=== PATIENT | male | born 1950 | race African-American/Black ===

== ENCOUNTER 2017-07-12 10:27 | Inpatient (IN) | payer MEDICARE, OTHER ==
[~2017-07-12] VITALS: Ht 182.9 cm; Wt 86.2 kg
[2017-07-12] VITALS (13 sets, daily range): BP systolic 82–120; BP diastolic 52–98
[2017-07-12] MEDS ORDERED: LORazepam Inj 2mg/ml 1ml IV ONE (10:45)
--- NOTE | 2017-07-12 10:57 | Emergency Room Report ---
History of Present Illness General Chief Complaint: Seizure Source: Medical Record, EMS Present Illness HPI Patient is brought in by paramedics for reported seizure activity Patient is a nursing facility and was found to have tonic-clonic seizure Patient himself is nonverbal at this time Review of medical records reveals a recent hospitalization in June 22 With similar seizure activity Patient was reported to have heavy alcohol abuse in the past and has had withdrawal seizures At this time not able to obtain further information regarding the patient's last drink or other reasons for seizure No reports of vomiting or diarrhea Allergies: Coded Allergies: HONEY (Verified Allergy, Unknown, 07/12/17) PENICILLINS (Verified Allergy, Unknown, 07/12/17) Patient History Limited by: medical condition Past Medical History: see triage record Pertinent Family History: unable to obtain Reviewed Nursing Documentation: PMH: Agreed, PSxH: Agreed Nursing Documentation-PMH Past Medical History: No History, Except For Hx Hypertension: Yes Hx Seizures: Yes Review of Systems All Other Systems: limited - Other than the ones mentioned in the history of present illness all others are reviewed however they do stay limited due to the patient's mental status Physical Exam Vital Signs Date Time Temp Pulse Resp B/P (MAP) Pulse Ox O2 Delivery O2 Flow Rate FiO2 07/12/17 10:19 112 10 85/58 Ambu-Bag Sp02 EP Interpretation: reviewed, normal General Appearance: mild distress - Patient appears possibly postictal however was also given benzodiazepine medication by paramedics, Head: normocephalic, atraumatic Eyes: bilateral eye PERRL, bilateral eye EOMI ENT: normal pharynx Neck: supple Respiratory: lungs clear, normal breath sounds Cardiovascular #1: regular rate, rhythm, no edema Gastrointestinal: non tender, soft Musculoskeletal: other - On initial arrival patient is not verbal appears to be medicated and possibly postictal, Neurologic: responsive - to physical stimuli Skin: normal color, no rash Lymphatic: no adenopathy Medical Decision Making Diagnostic Impression: Primary Impression: Epileptic seizure, generalized Additional Impression: UTI (urinary tract infection) ER Course Patient is a fairly complex patient with multiple differential to consideration including but not limited to cardiac cardiopulmonary and vascular emergencies Patient's urine sample reveals infectious pathology CT head did not show any acute disease patient has remained somewhat hypotensive There is consideration for medications that were provided by paramedics Causing hypotension however sepsis needs to be considered Patient remains afebrile Chest x-ray does not show any acute disease patient had improved with blood pressure up to the mid 90s however again is showing 85 systolic Patient provided us patient antibiotics further hydration and at this time requires admission to monitored bed Labs Test 07/12/17 10:30 07/12/17 11:30 White Blood Count 9.4 K/UL (4.8-10.8) Red Blood Count 3.94 M/UL (4.70-6.10) Hemoglobin 14.0 G/DL (14.2-18.0) Hematocrit 44.2 % (42.0-52.0) Mean Corpuscular Volume 112 FL (80-99) Mean Corpuscular Hemoglobin 35.6 PG (27.0-31.0) Mean Corpuscular Hemoglobin Concent 31.6 G/DL (32.0-36.0) Red Cell Distribution Width 11.8 % (11.6-14.8) Platelet Count 370 K/UL (150-450) Mean Platelet Volume 7.3 FL (6.5-10.1) Neutrophils (%) (Auto) % (45.0-75.0) Lymphocytes (%) (Auto) % (20.0-45.0) Monocytes (%) (Auto) % (1.0-10.0) Eosinophils (%) (Auto) % (0.0-3.0) Basophils (%) (Auto) % (0.0-2.0) Differential Total Cells Counted 100 Neutrophils % (Manual) 55 % (45-75) Lymphocytes % (Manual) 31 % (20-45) Monocytes % (Manual) 13 % (1-10) Eosinophils % (Manual) 1 % (0-3) Basophils % (Manual) 0 % (0-2) Band Neutrophils 0 % (0-8) Platelet Estimate Adequate Platelet Morphology Normal Macrocytosis 1+ Sodium Level 142 MMOL/L (136-145) Potassium Level 4.4 MMOL/L (3.5-5.1) Chloride Level 107 MMOL/L (98-107) Carbon Dioxide Level 26 MMOL/L (21-32) Anion Gap 9 (5-15) Blood Urea Nitrogen 20 mg/dL (7-18) Creatinine 1.2 MG/DL (0.55-1.30) Estimat Glomerular Filtration Rate > 60 mL/min (>60) Glucose Level 135 MG/DL (74-106) Calcium Level 9.3 MG/DL (8.5-10.1) Total Bilirubin 0.8 MG/DL (0.2-1.0) Aspartate Amino Transf (AST/SGOT) 39 U/L (15-37) Alanine Aminotransferase (ALT/SGPT) 29 U/L (12-78) Alkaline Phosphatase 64 U/L (46-116) Total Creatine Kinase 81 U/L (26-308) Creatine Kinase MB 0.8 NG/ML (0.0-3.6) Creatine Kinase MB Relative Index 0.9 Troponin I 0.017 ng/mL (0.000-0.056) Total Protein 8.2 G/DL (6.4-8.2) Albumin 3.2 G/DL (3.4-5.0) Globulin 5.0 g/dL Albumin/Globulin Ratio 0.6 (1.0-2.7) Lipase 757 U/L (73-393) Urine Color Yellow Urine Appearance Clear Urine pH 5 (4.5-8.0) Urine Specific [place] 1.025 (1.005-1.035) Urine Protein 2+ (NEGATIVE) Urine Glucose (UA) Negative (NEGATIVE) Urine Ketones Negative (NEGATIVE) Urine Occult Blood 1+ (NEGATIVE) Urine Nitrite Positive (NEGATIVE) Urine Bilirubin Negative (NEGATIVE) Urine Urobilinogen 1 MG/DL (0.0-1.0) Urine Leukocyte Esterase 2+ (NEGATIVE) Urine RBC 2-4 /HPF (0 - 0) Urine WBC 5-10 /HPF (0 - 0) Urine Squamous Epithelial Cells Few /LPF (NONE/OCC) Urine Bacteria Moderate /HPF (NONE) Urine Mucus Moderate /LPF (NONE/OCC) Urine Opiates Screen Negative (NEGATIVE) Urine Barbiturates Screen Negative (NEGATIVE) Phencyclidine (PCP) Screen Negative (NEGATIVE) Urine Amphetamines Screen Negative (NEGATIVE) Urine Benzodiazepines Screen Positive (NEGATIVE) Urine Cocaine Screen Negative (NEGATIVE) Urine Marijuana (THC) Screen Negative (NEGATIVE) Rhythm Strip Diag. Results EP Interpretation: yes Rate: 88 Rhythm: NSR, no PVC's, no ectopy Chest X-Ray Diagnostic Results Chest X-Ray Diagnostic Results : Chest X-Ray Ordered: Yes # of Views/Limited/Complete: 1 View Indication: Chest Pain EP Interpretation: Yes Interpretation: no consolidation, no effusion, no pneumothorax, no acute cardiopulmonary disease Impression: No acute disease Electronically Signed by: John Platt, DO CT/MRI/US Diagnostic Results CT/MRI/US Diagnostic Results : Impression CT head no acute disease CT abdomen pelvis no acute disease Last Vital Signs Date Time Temp Pulse Resp B/P (MAP) Pulse Ox O2 Delivery O2 Flow Rate FiO2 07/12/17 10:19 112 10 85/58 Ambu-Bag Status: improved Disposition: ADMITTED INPATIENT Condition: Serious Referrals: John Carballo MD (PCP) JOHN PLATT D.O. Jul 12, 2017 10:57
[2017-07-12 11:01] LABS: MEAN CORPUSCULAR HEMOGLOBIN 35.6 PG (27.0-31.0); MEAN CORPUSCULAR HGB CONC 31.6 G/DL (32.0-36.0); MEAN CORPUSCULAR VOLUME 112 FL (80-99); MEAN PLATELET VOLUME 7.3 FL (6.5-10.1); PLATELET COUNT 370 K/UL (150-450); RED BLOOD COUNT 3.94 M/UL (4.70-6.10); RED CELL DISTRIBUTION WIDTH 11.8 % (11.6-14.8); WHITE BLOOD COUNT 9.4 K/UL (4.8-10.8)
--- NOTE | 2017-07-12 11:06 | Diagnostic Imaging Report ---
Indication: Seizure Comparison: None Technique: Contiguous helical CT images of the brain was performed with [address] dose: Total DLP: 1393 mGycm; CTDI volume: 70.4 mGy Findings: There is no acute intracranial hemorrhage or infarct. No mass, mass effect or midline shift identified. Ventricles and sulci are prominent secondary to global cortical atrophy. There are no extra-axial fluid collections seen. Periventricular chronic ischemic changes are noted. Bony calvarium is intact. Mastoid air cells and visualized paranasal sinuses are clear. Impression: 1. No acute intracranial abnormalities. 2. Global cortical atrophy with periventricular chronic ischemic changes. The CT scanner at [facility] is accredited by the [employer] and the scans are performed using protocols designed to limit radiation exposure to as low as reasonably achievable to attain images of sufficient resolution adequate for diagnostic evaluation.
--- NOTE | 2017-07-12 11:14 | Diagnostic Imaging Report ---
Indication: Chest pain Comparison: None Findings: Single view of the chest is obtained. Exam is suboptimal secondary to decreased inspiration. Cardiac size is at the upper limits of normal. Mild pulmonary vascular congestion is noted. Lungs otherwise clear. Bones are unremarkable. Impression: Mild bilateral pulmonary vascular congestion.
[2017-07-12 11:19] LABS: BAND NEUTROPHILS % (MANUAL) 0 % (0-8); BASOPHILS % (MANUAL) 0 % (0-2); EOSINOPHILS % (MANUAL) 1 % (0-3); LYMPHOCYTES % (MANUAL) 31 % (20-45); NEUTROPHILS % (MANUAL) 55 % (45-75); PLATELET ESTIMATE ADEQUATE; PLATELET MORPHOLOGY NORMAL; TOTAL CELLS COUNTED 100
[2017-07-12 11:20] LABS: MACROCYTES 1+
[2017-07-12 11:46] LABS: ALANINE AMINOTRANSFERASE 29 U/L (12-78); ALBUMIN/GLOBULIN RATIO 0.6 (1.0-2.7); ANION GAP 9 (5-15); ASPARTATE AMINO TRANSFERASE 39 U/L (15-37); CALCIUM 9.3 MG/DL (8.5-10.1); CARBON DIOXIDE 26 MMOL/L (21-32); CHLORIDE 107 MMOL/L (98-107); CKMB 0.8 NG/ML (0.0-3.6); CREATININE 1.2 MG/DL (0.55-1.30); GLOMERULAR FILTRATION RATE > 60 mL/min (>60); LIPASE 757 U/L (73-393); POTASSIUM 4.4 MMOL/L (3.5-5.1); SODIUM 142 MMOL/L (136-145); TOTAL PROTEIN 8.2 G/DL (6.4-8.2)
[2017-07-12 12:02] LABS: APPEARANCE,URINE CLEAR; KETONES,URINE NEGATIVE (NEGATIVE); LEUKOCYTE ESTERASE ,URINE 2+ (NEGATIVE); NITRITE,URINE POSITIVE (NEGATIVE); PH,URINE 5 (4.5-8.0); PROTEIN,URINE 2+ (NEGATIVE); UROBILINOGEN,URINE 1 MG/DL (0.0-1.0)
[2017-07-12 12:27] LABS: BACTERIA,URINE MODERATE /HPF; MUCUS,URINE MODERATE /LPF (NONE/OCC); SQUAMOUS EPITHELIAL CELL,UR FEW /LPF (NONE/OCC)
[2017-07-12] MEDS ORDERED: OMEPRAZOLE20 M3 ORAL (13:27)
[2017-07-12] MEDS ORDERED: HYDRALAZINE HC100 MG ORAL (13:27)
[2017-07-12] MEDS ORDERED: LOPRESSOR PO (13:27)
[2017-07-12] MEDS ORDERED: ADALAT20 MG ORAL (13:28)
[2017-07-12] MEDS ORDERED: COZAAR50 MG ORAL (13:28)
[2017-07-12] MEDS ORDERED: TEGRETOL200 MG PO (13:28)
[2017-07-12] MEDS ORDERED: KEPPRA500 M4 ORAL (13:29)
[2017-07-12] MEDS ORDERED: FOLIC ACID1 MG ORAL (13:29)
--- NOTE | 2017-07-12 16:48 | Infectious Diseases Prog Note ---
Assessment/Plan Problems: (1) Pneumonia Assessment & Plan: will start vancomycin, aztreonam, and flagyl empirically, send influenza screening (2) UTI (urinary tract infection) Assessment & Plan: will send urien culture and start cefepime (3) Sepsis Assessment & Plan: with hypotension, will send blood culture and start vancomycin with cefepime empiricaly (4) Epileptic seizure, generalized Assessment & Plan: unclear etiology, on wide spectrum antibiotics to cover possible infection, recommend neurology eval, continue neuro check Subjective Allergies: Coded Allergies: HONEY (Verified Allergy, Unknown, 07/12/17) PENICILLINS (Verified Allergy, Unknown, 07/12/17) Objective Vital Signs Last 24 Hour Vital Signs Date Time Temp Pulse Resp B/P (MAP) Pulse Ox O2 Delivery O2 Flow Rate FiO2 07/12/17 15:46 96.9 95 20 82/59 96 Nasal Cannula 4.0 07/12/17 13:30 99 10 95/54 91 Nasal Cannula 4.0 07/12/17 12:10 99.8 84 8 94/52 96 Nasal Cannula 4.0 07/12/17 10:28 88 10 Nasal Cannula 4.0 96 07/12/17 10:19 112 10 85/58 Ambu-Bag Height (Feet): 6 Weight (Pounds): 190 Laboratory Tests Test 07/12/17 10:30 07/12/17 11:30 White Blood Count 9.4 K/UL (4.8-10.8) Red Blood Count 3.94 M/UL (4.70-6.10) L Hemoglobin 14.0 G/DL (14.2-18.0) L Hematocrit 44.2 % (42.0-52.0) Mean Corpuscular Volume 112 FL (80-99) H Mean Corpuscular Hemoglobin 35.6 PG (27.0-31.0) H Mean Corpuscular Hemoglobin Concent 31.6 G/DL (32.0-36.0) L Red Cell Distribution Width 11.8 % (11.6-14.8) Platelet Count 370 K/UL (150-450) Mean Platelet Volume 7.3 FL (6.5-10.1) Neutrophils (%) (Auto) % (45.0-75.0) Lymphocytes (%) (Auto) % (20.0-45.0) Monocytes (%) (Auto) % (1.0-10.0) Eosinophils (%) (Auto) % (0.0-3.0) Basophils (%) (Auto) % (0.0-2.0) Differential Total Cells Counted 100 Neutrophils % (Manual) 55 % (45-75) Lymphocytes % (Manual) 31 % (20-45) Monocytes % (Manual) 13 % (1-10) H Eosinophils % (Manual) 1 % (0-3) Basophils % (Manual) 0 % (0-2) Band Neutrophils 0 % (0-8) Platelet Estimate Adequate Platelet Morphology Normal Macrocytosis 1+ Sodium Level 142 MMOL/L (136-145) Potassium Level 4.4 MMOL/L (3.5-5.1) Chloride Level 107 MMOL/L (98-107) Carbon Dioxide Level 26 MMOL/L (21-32) Anion Gap 9 (5-15) Blood Urea Nitrogen 20 mg/dL (7-18) H Creatinine 1.2 MG/DL (0.55-1.30) Estimat Glomerular Filtration Rate > 60 mL/min (>60) Glucose Level 135 MG/DL (74-106) H Calcium Level 9.3 MG/DL (8.5-10.1) Total Bilirubin 0.8 MG/DL (0.2-1.0) Aspartate Amino Transf (AST/SGOT) 39 U/L (15-37) H Alanine Aminotransferase (ALT/SGPT) 29 U/L (12-78) Alkaline Phosphatase 64 U/L (46-116) Total Creatine Kinase 81 U/L (26-308) Creatine Kinase MB 0.8 NG/ML (0.0-3.6) Creatine Kinase MB Relative Index 0.9 Troponin I 0.017 ng/mL (0.000-0.056) Total Protein 8.2 G/DL (6.4-8.2) Albumin 3.2 G/DL (3.4-5.0) L Globulin 5.0 g/dL Albumin/Globulin Ratio 0.6 (1.0-2.7) L Lipase 757 U/L (73-393) H Urine Color Yellow Urine Appearance Clear Urine pH 5 (4.5-8.0) Urine Specific [place] 1.025 (1.005-1.035) Urine Protein 2+ (NEGATIVE) H Urine Glucose (UA) Negative (NEGATIVE) Urine Ketones Negative (NEGATIVE) Urine Occult Blood 1+ (NEGATIVE) H Urine Nitrite Positive (NEGATIVE) H Urine Bilirubin Negative (NEGATIVE) Urine Urobilinogen 1 MG/DL (0.0-1.0) H Urine Leukocyte Esterase 2+ (NEGATIVE) H Urine RBC 2-4 /HPF (0 - 0) H Urine WBC 5-10 /HPF (0 - 0) H Urine Squamous Epithelial Cells Few /LPF (NONE/OCC) Urine Bacteria Moderate /HPF (NONE) H Urine Mucus Moderate /LPF (NONE/OCC) H Urine Opiates Screen Negative (NEGATIVE) Urine Barbiturates Screen Negative (NEGATIVE) Phencyclidine (PCP) Screen Negative (NEGATIVE) Urine Amphetamines Screen Negative (NEGATIVE) Urine Benzodiazepines Screen Positive (NEGATIVE) H Urine Cocaine Screen Negative (NEGATIVE) Urine Marijuana (THC) Screen Negative (NEGATIVE) Ambrose Krishna M.D. Jul 12, 2017 16:48
[2017-07-12] MEDS ORDERED: Cefepime HCl 2 GM in D5W 110 ML IVPB SCH (18:00)
--- NOTE | 2017-07-12 18:45 | Consultation ---
DATE OF CONSULTATION: INFECTIOUS DISEASE CONSULTATION CONSULTING PHYSICIAN: Ambrose Krishna M.D. REQUESTING PHYSICIAN: John Carballo M.D. REASON FOR CONSULTATION: Fever, hypotension, urinary tract infection,and pneumonia. Recommendation for antibiotics treatment in a patient, who has penicillin allergy. HISTORY OF PRESENT ILLNESS: The patient is a 67-year-old male with past medical history of seizure disorder, was brought in by paramedics to [facility] emergency room after he had breakthrough seizure activity. It was tonic clonic seizure, was noticed by the nursing facility where he lives at. The patient was found to have urinary tract infection and fever. His x-ray also was suspicious of infiltration due to pneumonia and he was hypotensive. So, I was consulted by the primary provider for antibiotics treatment for possible sepsis with shock and urinary tract infection and possible pneumonia. As of note, the patient is a poor historian and cannot provide any history due to seizure activity. History was mainly obtained from the medical record. PAST MEDICAL HISTORY: Significant for seizure disorder and hypertension. PAST SURGICAL HISTORY: Negative. MEDICATIONS: He received Levaquin in the emergency room. For the rest of his medications, please refer to MAR. ALLERGIES: He is allergic to penicillin, unclear reaction and honey. SOCIAL HISTORY: He is a prison resident. He used to be alcoholic in the past, but quit recently. No drugs or tobacco. FAMILY HISTORY: Unable to obtain. REVIEW OF SYSTEMS: Unable to obtain. The patient cannot provide any history. PHYSICAL EXAMINATION: VITAL SIGNS: Temperature 99.8 degrees, pulse 84, respirations 8, blood pressure 94/52, and pulse oximetry 96% on four liters nasal cannula. GENERAL: A middle-aged male, lying in bed, obtunded, nonverbal, and not in acute distress. HEENT: Normocephalic and atraumatic. Pupils are reactive to light. Unable to assess oral mucosa. NECK: Supple. No lymphadenopathy. CARDIOVASCULAR: He is tachycardic. S1 and S2 normal. No gallop or murmur. LUNGS: He had diminished breathing sounds at the bases with crackles. No wheezing. ABDOMEN: Soft, nontender, and nondistended. Positive bowel sounds. No hepatosplenomegaly or ascites. EXTREMITY: No edema or cyanosis. LABORATORY DATA: Labs showed white count of 9.4, hemoglobin of 14.4, and platelet count of 370,000. BUN of 20 and creatinine of 1.2. Lipase of 757. Urinalysis showed +2 leukocyte esterase, WBC 5 to 10, and moderate amount of bacteria. IMAGING: Head CT scan showed no acute pathology, infarction, or bleeding. Chest x-ray showed mild bilateral pulmonary vascular congestion. ASSESSMENT AND RECOMMENDATIONS: 1. Possible pneumonia. We will start the patient on vancomycin , aztreonam and flagyl empiric coverage and send influenza screening test. 2. Urinary tract infection. We will send urine culture and start cefepime. 3. Sepsis with hypotension due to the above. We will send blood culture and start vancomycin with cefepime empiric coverage. 4. Epileptic seizure, generalized, unclear etiology, on wide-spectrum antibiotics to cover for possible infection. Recommend Neurology evaluation for further management. Continue neuro check. Thank you for the consult. Ambrose Krishna M.D. DR: XAVI JOB#: [id number] CC: ROD
[2017-07-12] MEDS ORDERED: NS 250 ML IV ONE (19:00)
[2017-07-12] MEDS ORDERED: Vancomycin 1.5 GM/D5W 250ML IVPB ONE (19:30)
[2017-07-12] MEDS ORDERED: Heparin 5000 units/ml inj SUBQ SCH (21:00)
[2017-07-12] MEDS ORDERED: Aztreonam Inj 1 GM in D5W 55 ML IVPB SCH (23:00)
[2017-07-12] MEDS: Aztreonam Inj 1 GM in D5W 55 ML IVPB SCH (23:37)
[2017-07-13] VITALS (43 sets, daily range): BP systolic 70–174; BP diastolic 40–113
--- NOTE | 2017-07-13 | Consultation ---
DATE OF CONSULTATION: 07/12/2017 GASTROENTEROLOGY CONSULTATION CONSULTING PHYSICIAN: Glenn Haq M.D. ATTENDING PHYSICIAN: John Carballo M.D. REFERRING PHYSICIAN: John Carballo M.D. CHIEF COMPLAINT: Pancreatitis. HISTORY OF PRESENT ILLNESS: Most of history is per at the bedside. A 67-year-old male with past medical history of alcoholism, history of IV drug abuse in the past, history of hepatitis C untreated. Recently, he was admitted on 06/22/2017 to another facility after having seizure, the does not know why, possibly alcohol withdrawal but not sure. He was there for long time and was discharged recently. On , he was transferred and discharged from the hospital and now came back again with another seizure and also evidence of pancreatitis. According to the , daughter, and the hospitalist, he was told that the patient has gallstones and also evidence of pancreatitis, so they were not sure if the gallstone was causing pancreatitis or not. PAST MEDICAL HISTORY: 1. Hepatitis C. 2. History of alcoholism. 3. History of IV drug abuse in the past. 4. Gallstones. 5. Pancreatitis. 6. Seizure recently. PAST SURGICAL HISTORY: None. MEDICATIONS: Please see medication reconciliation list. ALLERGIES: Honey and penicillin. SOCIAL HISTORY: He smokes, drinks, and he used to do drugs, currently on methadone. FAMILY HISTORY: Noncontributory. REVIEW OF SYSTEMS: Unable to obtain. PHYSICAL EXAMINATION: VITAL SIGNS: Temperature 96.9, pulse , respiratory rate 20, and blood pressure 82/59. HEENT: Normocephalic and atraumatic. Mild pale conjunctivae. NECK: Supple. No evidence of lymphadenopathy. CARDIOVASCULAR: Regular rhythm. Plus S1 and S2. LUNGS: Clear to auscultation bilaterally. ABDOMEN: Positive bowel sounds. Soft and nontender. No rebound. No guarding. No peritoneal sign. EXTREMITIES: No cyanosis, no clubbing, and no edema. LABORATORY AND DIAGNOSTIC DATA: White count 9.4, hemoglobin 14, hematocrit 44, and platelet count 370,000. Chem-7, sodium 142, potassium 4.4, BUN is 20 and creatinine is 1.2. Liver function is grossly normal. Lipase is 757. ASSESSMENT AND PLAN: The patient is a 67-year-old male with history of hepatitis C, history of intravenous drug abuse, probably intravenous drug abuse recently. He is having history of pancreatitis and gallstones and now with elevated lipase. PLAN: N.p.o. IV fluids. Swallow evaluation. CT of the abdomen and pelvis for evaluation of pancreatitis. Repeat amylase and lipase tomorrow. Lipid panel for tomorrow. B12 and folate given macrocytosis and start the patient on subcutaneous heparin for DVT prophylaxis. I want to thank, Dr. John Carballo, for this kind referral. Glenn Haq M.D. DR: RAY JOB#: [id number] CC: John Carballo M.D.; Fax#: [phone]
[2017-07-13] MEDS ORDERED: Vancomycin 1.5 GM/D5W 250ML IVPB ONE (00:15)
[2017-07-13] MEDS: Aztreonam Inj 1 GM in D5W 55 ML IVPB SCH ×3 (05:27→21:41)
[2017-07-13] MEDS: Heparin 5000 units/ml inj SUBQ SCH ×2 (08:37→20:41)
--- NOTE | 2017-07-13 08:42 | Diagnostic Imaging Report ---
Clinical Indication: Abdominal pain Technique: No oral contrast utilized, per emergency room physician request IV administration nonionic contrast. Venous phase spiral acquisition obtained through the abdomen and pelvis. Multiplanar reconstructions were generated. Total dose length product 1079 mGycm. CTDIvol(s) 19 mGy. Dose reduction achieved using automated exposure control Comparison: None Findings: Exam is limited by respiratory motion artifact. The appendix is normal. There is a mild amount of retained fecal material. There are a few scattered colonic diverticula. No evidence of diverticulitis. No small bowel distention. No free or loculated intraperitoneal air or fluid. Distal esophagus, stomach, duodenum are unremarkable. The gallbladder equivocally demonstrates gallstones. The common bile duct is mildly ectatic, measuring up to 9 mm in diameter. No definite obstructing lesion is demonstrated. The pancreas, spleen, adrenals are unremarkable. There are bilateral renal cysts. There are also subcentimeter low-attenuation renal lesions which are too small to characterize. No mesenteric or retroperitoneal mass or adenopathy. No pelvic mass or adenopathy. There are prostatic calcifications. There is stranding of the anterior abdominal wall fat. There is also edema of the dependent subcutaneous fat of the bilateral buttock and lumbar regions. The included lung bases demonstrate interstitial thickening bilaterally. The bones demonstrate mild spondylosis changes. There is a mild anterior wedge compression fracture deformity of the L4 vertebral body. There are tiny fat-containing inguinal hernias. There is questionably a minimal hiatal hernia. Impression: Somewhat limited exam due to respiratory motion artifact No definite acute abdominal or pelvic process Bilateral basilar pulmonary probable interstitial disease, acuity indeterminate Superior L4 impression fracture, age indeterminate. Consider MRI if clinically relevant Equivocal cholelithiasis Diverticulosis. No evidence of diverticulitis Stranding of the anterior abdominal wall and bilateral a duct and lumbar dependent subcutaneous fat, nonspecific, probably due to edema Bilateral renal cysts. Subcentimeter low-attenuation renal lesions are too small to characterize. Most likely benign simple cyst. No further followup needed Other findings as noted, including probable small hiatal hernia, bilateral fat-containing inguinal hernias, degenerative spondylosis, prostatic calcifications This agrees with the preliminary interpretation provided overnight by Dr. Ramírez The CT scanner at [facility] is accredited by the [employer] and the scans are performed using protocols designed to limit radiation exposure to as low as reasonably achievable to attain images of sufficient resolution adequate for diagnostic evaluation.
[2017-07-13 09:52] LABS: MEAN CORPUSCULAR HEMOGLOBIN 36.3 PG (27.0-31.0); MEAN CORPUSCULAR HGB CONC 32.3 G/DL (32.0-36.0); MEAN CORPUSCULAR VOLUME 112 FL (80-99); MEAN PLATELET VOLUME 7.1 FL (6.5-10.1); PLATELET COUNT 256 K/UL (150-450); RED BLOOD COUNT 3.31 M/UL (4.70-6.10); RED CELL DISTRIBUTION WIDTH 11.7 % (11.6-14.8); WHITE BLOOD COUNT 9.8 K/UL (4.8-10.8)
[2017-07-13 09:56] LABS: PROTHROMBIN TIME 10.3 SEC (9.30-11.50)
[2017-07-13] MEDS ORDERED: Vancomycin 1gm/D5W 275ml IVPB SCH ×2 (10:00)
[2017-07-13 10:12] LABS: ALANINE AMINOTRANSFERASE 26 U/L (12-78); ALBUMIN/GLOBULIN RATIO 0.8 (1.0-2.7); AMYLASE 122 U/L (25-115); ANION GAP 7 (5-15); ASPARTATE AMINO TRANSFERASE 25 U/L (15-37); CALCIUM 9.2 MG/DL (8.5-10.1); CARBON DIOXIDE 29 MMOL/L (21-32); CHLORIDE 107 MMOL/L (98-107); CHOLESTEROL 82 MG/DL (< 200); CHOLESTEROL/HDL RATIO 2.2 (3.3-4.4); CREATININE 2.2 MG/DL (0.55-1.30); GLOMERULAR FILTRATION RATE 36.5 mL/min (>60); POTASSIUM 4.1 MMOL/L (3.5-5.1); SODIUM 143 MMOL/L (136-145); TOTAL PROTEIN 7.4 G/DL (6.4-8.2)
[2017-07-13 10:21] LABS: BAND NEUTROPHILS % (MANUAL) 0 % (0-8); BASOPHILS % (MANUAL) 1 % (0-2); EOSINOPHILS % (MANUAL) 1 % (0-3); LYMPHOCYTES % (MANUAL) 18 % (20-45); MACROCYTES 1+; NEUTROPHILS % (MANUAL) 71 % (45-75); PLATELET ESTIMATE ADEQUATE; PLATELET MORPHOLOGY NORMAL; TOTAL CELLS COUNTED 100
[2017-07-13 10:23] LABS: MAGNESIUM 1.8 MG/DL (1.8-2.4); PHOSPHORUS 5.4 MG/DL (2.5-4.9); URIC ACID 5.1 MG/DL (2.6-7.2)
[2017-07-13 10:40] LABS: FOLIC ACID 16.4 NG/ML (3.1-17.5)
--- NOTE | 2017-07-13 11:19 | Consultation ---
Consult Note Consult Note asked to evaluate for acute renal failure Chief Complaint: Seizure Patient is brought in by paramedics for reported seizure activity Patient is a nursing facility and was found to have tonic-clonic seizure Review of medical records reveals a recent hospitalization in June 22 With similar seizure activity Patient was reported to have heavy alcohol abuse in the past and has had withdrawal seizures At this time not able to obtain further information regarding the patient's last drink or other reasons for seizure No reports of vomiting or diarrhea Coded Allergies: HONEY (Verified Allergy, Unknown, 07/12/17) PENICILLINS (Verified Allergy, Unknown, 07/12/17) patient interviewed and examined in ICU data reviewed Assessment/Plan status; - Acute renal failure due to Hypotension . Cr 1.2 jumped to 2.2 - Pneumonia, UTI, Sepsis, Hypotension Sz disordere Plan: fluid challenged- pressors used now off pressors with good urine out put Will continue IV fluids- Monitor renal parameters antibiotics- avoid nephrotoxics Neuro and ID ANDREA Andrews Jul 13, 2017 11:19
--- NOTE | 2017-07-13 12:18 | Consultation ---
Consult Note Consult Note Date and time entered: 07/13/17 1216 DATE OF CONSULTATION: PULMONARY CONSULTATION CONSULTING PHYSICIAN: Clark Brian/Ralph Singh M.D. REQUESTING PHYSICIAN: John Carballo M.D. REASON FOR CONSULTATION: Seizures; respiratory insufficiency HISTORY OF PRESENT ILLNESS: The patient is a 67-year-old male with past medical history of seizure disorder, was brought in by paramedics to [facility] emergency room after he had breakthrough seizure activity. It was tonic clonic seizure, was noticed by the nursing facility where he lives at. The patient was found to have urinary tract infection and fever. His x-ray also was suspicious of infiltration due to pneumonia and he was hypotensive. The patient is a poor historian and cannot provide any history due to seizure activity. History was mainly obtained from the medical record. PAST MEDICAL HISTORY: Significant for seizure disorder and hypertension. PAST SURGICAL HISTORY: Negative. MEDICATIONS: He received Levaquin in the emergency room. For the rest of his medications, please refer to [facility]. ALLERGIES: He is allergic to penicillin, unclear reaction and honey. SOCIAL HISTORY: [facility] is a [facility] resident. He used to be alcoholic in the past, but quit recently. No drugs or tobacco. FAMILY HISTORY: Unable to obtain. REVIEW OF SYSTEMS: Unable to obtain. The patient cannot provide any history. PHYSICAL EXAMINATION: VITAL SIGNS: Temperature 99.8 degrees, pulse 84, respirations 8, blood pressure 94/52, and pulse oximetry 96% on four liters nasal cannula. GENERAL: A middle-aged male, lying in bed, obtunded, nonverbal, and not in acute distress. HEENT: Normocephalic and atraumatic. Pupils are reactive to light. Unable to assess oral mucosa. NECK: Supple. No lymphadenopathy. CARDIOVASCULAR: He is tachycardic. S1 and S2 normal. No gallop or murmur. LUNGS: He had diminished breathing sounds at the bases with crackles. No wheezing. ABDOMEN: Soft, nontender, and nondistended. Positive bowel sounds. No hepatosplenomegaly or ascites. EXTREMITY: No edema or cyanosis. LABORATORY DATA: Labs showed white count of 9.4, hemoglobin of 14.4, and platelet count of 370,000. BUN of 20 and creatinine of 1.2. Lipase of 757. Urinalysis showed +2 leukocyte esterase, WBC 5 to 10, and moderate amount of bacteria. IMAGING: Head CT scan showed no acute pathology, infarction, or bleeding. Chest x-ray showed mild bilateral pulmonary vascular congestion. ASSESSMENT AND RECOMMENDATIONS: 1. Possible pneumonia. Agree with vancomycin , aztreonam and flagyl empiric coverage 2. Urinary tract infection. await urine culture and start cefepime. 3. Sepsis with hypotension due to the above. Send blood culture and start vancomycin with cefepime empiric coverage. 4. Epileptic seizure, generalized, unclear etiology, on wide-spectrum antibiotics to cover for possible infection. Respiratory status is stable Thank you for the consult. Clark Brian MD Jul 13, 2017 12:18
[2017-07-13] MEDS ORDERED: LORazepam Inj 2mg/ml 1ml IV PRN (12:30)
--- NOTE | 2017-07-13 12:58 | Neurology Progress Note ---
Objective Physical Exam Last Vital Signs Date Time Temp Pulse Resp B/P (MAP) Pulse Ox O2 Delivery O2 Flow Rate FiO2 07/13/17 10:00 91 15 122/94 100 Nasal Cannula 2.0 07/13/17 04:00 97.4 07/12/17 22:50 28 Laboratory Tests Test 07/13/17 09:15 White Blood Count 9.8 K/UL (4.8-10.8) Red Blood Count 3.31 M/UL (4.70-6.10) L Hemoglobin 12.0 G/DL (14.2-18.0) L Hematocrit 37.1 % (42.0-52.0) L Mean Corpuscular Volume 112 FL (80-99) H Mean Corpuscular Hemoglobin 36.3 PG (27.0-31.0) H Mean Corpuscular Hemoglobin Concent 32.3 G/DL (32.0-36.0) Red Cell Distribution Width 11.7 % (11.6-14.8) Platelet Count 256 K/UL (150-450) Mean Platelet Volume 7.1 FL (6.5-10.1) Neutrophils (%) (Auto) % (45.0-75.0) Lymphocytes (%) (Auto) % (20.0-45.0) Monocytes (%) (Auto) % (1.0-10.0) Eosinophils (%) (Auto) % (0.0-3.0) Basophils (%) (Auto) % (0.0-2.0) Differential Total Cells Counted 100 Neutrophils % (Manual) 71 % (45-75) Lymphocytes % (Manual) 18 % (20-45) L Monocytes % (Manual) 9 % (1-10) Eosinophils % (Manual) 1 % (0-3) Basophils % (Manual) 1 % (0-2) Band Neutrophils 0 % (0-8) Platelet Estimate Adequate Platelet Morphology Normal Macrocytosis 1+ Prothrombin Time 10.3 SEC (9.30-11.50) Prothromb Time International Ratio 1.0 (0.9-1.1) Sodium Level 143 MMOL/L (136-145) Potassium Level 4.1 MMOL/L (3.5-5.1) Chloride Level 107 MMOL/L (98-107) Carbon Dioxide Level 29 MMOL/L (21-32) Anion Gap 7 (5-15) Blood Urea Nitrogen 23 mg/dL (7-18) H Creatinine 2.2 MG/DL (0.55-1.30) #H Estimat Glomerular Filtration Rate 36.5 mL/min (>60) Glucose Level 86 MG/DL (74-106) Uric Acid 5.1 MG/DL (2.6-7.2) Calcium Level 9.2 MG/DL (8.5-10.1) Phosphorus Level 5.4 MG/DL (2.5-4.9) H Magnesium Level 1.8 MG/DL (1.8-2.4) Total Bilirubin 0.9 MG/DL (0.2-1.0) Gamma Glutamyl Transpeptidase 273 U/L (5-85) H Aspartate Amino Transf (AST/SGOT) 25 U/L (15-37) Alanine Aminotransferase (ALT/SGPT) 26 U/L (12-78) Alkaline Phosphatase 50 U/L (46-116) Total Creatine Kinase 107 U/L (26-308) Troponin I 0.000 ng/mL (0.000-0.056) C-Reactive Protein, Quantitative 1.0 mg/dL (0.00-0.90) H Pro-B-Type Natriuretic Peptide 196 (0-125) H Total Protein 7.4 G/DL (6.4-8.2) Albumin 3.2 G/DL (3.4-5.0) L Globulin 4.2 g/dL Albumin/Globulin Ratio 0.8 (1.0-2.7) L Triglycerides Level 67 MG/DL (0-200) Cholesterol Level 82 MG/DL (< 200) LDL Cholesterol 39 mg/dL (<100) HDL Cholesterol 38 MG/DL (40-60) L Cholesterol/HDL Ratio 2.2 (3.3-4.4) L Amylase Level 122 U/L (25-115) H Lipase 180 U/L (73-393) Vitamin B12 Level 784 PG/ML (193-986) Folate 16.4 NG/ML (3.1-17.5) Impression/Recommendations Problems: (1) Epileptic seizure, generalized (2) UTI (urinary tract infection) Recommendations # neuroconsult done, ordrs placed. # [id number] EMILIA HAWTHORNE Jul 13, 2017 12:58
[2017-07-13] MEDS ORDERED: Vancomycin 1 GM in D5W 275 ML IVPB SCH (13:00)
[2017-07-13] MEDS: LORazepam Inj 2mg/ml 1ml IV PRN ×2 (13:38→22:56)
[2017-07-13] MEDS ORDERED: Haloperidol 5mg/ml Inj IM PRN (13:45)
--- NOTE | 2017-07-13 13:47 | GI Progress Note ---
Assessment/Plan Problems: (1) Sepsis ICD Codes: A41.9 - Sepsis, unspecified organism SNOMED: 11299326 (2) Epileptic seizure, generalized ICD Codes: G40.309 - Generalized idiopathic epilepsy and epileptic syndromes, not intractable, without status epilepticus SNOMED: 78497480 (3) Seizure disorder ICD Codes: G40.909 - Epilepsy, unspecified, not intractable, without status epilepticus SNOMED: 472688212 (4) Absence seizure ICD Codes: G40.A09 - Absence epileptic syndrome, not intractable, without status epilepticus SNOMED: 32816903 Status: stable Status Narrative Discussed with Dr. Haq. Assessment/Plan CT AP reviewed >> unremarkable History of hepatitis C, history of intravenous drug abuse elevated lipase >> now normal utox positive >> benzodiazepine ST eval noted >> will start patient on soft renal diet thiamine ppi fu labs The patient was seen and examined at bedside and all new and available data was reviewed in the patients chart. I agree with the above findings, impression and plan. (Patient seen earlier today. Signature stamp does not reflect patient encounter time.). - Brianna Haq MD Subjective Subjective limited Objective Last 24 Hour Vital Signs Date Time Temp Pulse Resp B/P (MAP) Pulse Ox O2 Delivery O2 Flow Rate FiO2 07/13/17 12:00 97 07/13/17 10:00 91 15 122/94 100 Nasal Cannula 2.0 07/13/17 08:00 96 07/13/17 07:00 90 13 109/72 100 Nasal Cannula 2.0 07/13/17 06:45 86 13 123/76 100 Nasal Cannula 2.0 07/13/17 06:30 88 15 115/62 96 Nasal Cannula 2.0 07/13/17 06:15 89 17 123/58 100 Nasal Cannula 2.0 07/13/17 06:00 93 14 103/69 98 Nasal Cannula 2.0 07/13/17 06:00 103/69 07/13/17 05:45 98 17 108/43 98 Nasal Cannula 2.0 07/13/17 05:30 113 24 119/78 90 Nasal Cannula 2.0 07/13/17 05:15 110 17 124/76 94 Nasal Cannula 2.0 07/13/17 05:00 111 18 105/89 98 Nasal Cannula 2.0 07/13/17 05:00 105/69 10/16/17 04:45 107 17 105/89 97 Nasal Cannula 2.0 07/13/17 04:30 106 19 105/89 98 Nasal Cannula 2.0 07/13/17 04:15 105 18 105/89 97 Nasal Cannula 2.0 07/13/17 04:00 97.4 94 18 115/40 94 Nasal Cannula 2.0 07/13/17 04:00 115/94 07/13/17 04:00 89 07/13/17 03:45 87 18 70/45 94 Nasal Cannula 2.0 07/13/17 03:30 89 11 113/83 91 Nasal Cannula 2.0 07/13/17 03:15 93 19 116/70 94 Nasal Cannula 2.0 07/13/17 03:00 93 19 99/66 96 Nasal Cannula 2.0 07/13/17 03:00 116/70 07/13/17 02:45 93 19 108/66 96 Nasal Cannula 2.0 07/13/17 02:30 93 19 120/85 96 Nasal Cannula 2.0 07/13/17 02:15 93 12 108/71 97 Nasal Cannula 2.0 07/13/17 02:00 93 15 105/60 97 Nasal Cannula 2.0 07/13/17 02:00 108/71 07/13/17 01:45 93 16 105/83 97 Nasal Cannula 2.0 07/13/17 01:30 91 14 102/68 97 Nasal Cannula 2.0 07/13/17 01:15 91 14 102/68 97 Nasal Cannula 2.0 07/13/17 01:00 130/71 07/13/17 01:00 92 16 130/71 97 Nasal Cannula 2.0 07/13/17 00:45 90 12 118/71 97 Nasal Cannula 2.0 07/13/17 00:30 88 9 107/72 97 Nasal Cannula 4.0 07/13/17 00:15 91 12 113/70 97 Nasal Cannula 4.0 07/13/17 00:00 91 07/13/17 00:00 98.7 89 14 113/70 97 Nasal Cannula 4.0 07/13/17 00:00 119/68 07/12/17 23:45 93 17 120/98 96 Nasal Cannula 4.0 07/12/17 23:38 99/68 07/12/17 23:30 91 15 120/98 96 Nasal Cannula 4.0 07/12/17 23:15 87 17 99/68 96 Nasal Cannula 4.0 07/12/17 23:00 88 11 99/68 96 Nasal Cannula 4.0 07/12/17 22:50 98 Nasal Cannula 2.0 28 07/12/17 22:49 Nasal Cannula 2.0 28 07/12/17 22:45 89 13 99/68 97 Nasal Cannula 4.0 07/12/17 22:30 88 8 99/68 98 Nasal Cannula 4.0 07/12/17 22:15 88 11 86/66 98 Nasal Cannula 4.0 07/12/17 22:00 87 5 86/66 98 Nasal Cannula 4.0 07/12/17 21:30 98.1 89 14 94/62 98 Nasal Cannula 4.0 07/12/17 16:19 93 07/12/17 15:46 96.9 95 20 82/59 96 Nasal Cannula 4.0 Intake and Output 07/13/17 07/14/17 19:00 07:00 Intake Total 0 ml Output Total 430 ml Balance -430 ml Intake Oral 0 ml Output Urine Total 430 ml Laboratory Tests Test 07/13/17 09:15 White Blood Count 9.8 K/UL (4.8-10.8) Red Blood Count 3.31 M/UL (4.70-6.10) L Hemoglobin 12.0 G/DL (14.2-18.0) L Hematocrit 37.1 % (42.0-52.0) L Mean Corpuscular Volume 112 FL (80-99) H Mean Corpuscular Hemoglobin 36.3 PG (27.0-31.0) H Mean Corpuscular Hemoglobin Concent 32.3 G/DL (32.0-36.0) Red Cell Distribution Width 11.7 % (11.6-14.8) Platelet Count 256 K/UL (150-450) Mean Platelet Volume 7.1 FL (6.5-10.1) Neutrophils (%) (Auto) % (45.0-75.0) Lymphocytes (%) (Auto) % (20.0-45.0) Monocytes (%) (Auto) % (1.0-10.0) Eosinophils (%) (Auto) % (0.0-3.0) Basophils (%) (Auto) % (0.0-2.0) Differential Total Cells Counted 100 Neutrophils % (Manual) 71 % (45-75) Lymphocytes % (Manual) 18 % (20-45) L Monocytes % (Manual) 9 % (1-10) Eosinophils % (Manual) 1 % (0-3) Basophils % (Manual) 1 % (0-2) Band Neutrophils 0 % (0-8) Platelet Estimate Adequate Platelet Morphology Normal Macrocytosis 1+ Prothrombin Time 10.3 SEC (9.30-11.50) Prothromb Time International Ratio 1.0 (0.9-1.1) Sodium Level 143 MMOL/L (136-145) Potassium Level 4.1 MMOL/L (3.5-5.1) Chloride Level 107 MMOL/L (98-107) Carbon Dioxide Level 29 MMOL/L (21-32) Anion Gap 7 (5-15) Blood Urea Nitrogen 23 mg/dL (7-18) H Creatinine 2.2 MG/DL (0.55-1.30) #H Estimat Glomerular Filtration Rate 36.5 mL/min (>60) Glucose Level 86 MG/DL (74-106) Uric Acid 5.1 MG/DL (2.6-7.2) Calcium Level 9.2 MG/DL (8.5-10.1) Phosphorus Level 5.4 MG/DL (2.5-4.9) H Magnesium Level 1.8 MG/DL (1.8-2.4) Total Bilirubin 0.9 MG/DL (0.2-1.0) Gamma Glutamyl Transpeptidase 273 U/L (5-85) H Aspartate Amino Transf (AST/SGOT) 25 U/L (15-37) Alanine Aminotransferase (ALT/SGPT) 26 U/L (12-78) Alkaline Phosphatase 50 U/L (46-116) Total Creatine Kinase 107 U/L (26-308) Troponin I 0.000 ng/mL (0.000-0.056) C-Reactive Protein, Quantitative 1.0 mg/dL (0.00-0.90) H Pro-B-Type Natriuretic Peptide 196 (0-125) H Total Protein 7.4 G/DL (6.4-8.2) Albumin 3.2 G/DL (3.4-5.0) L Globulin 4.2 g/dL Albumin/Globulin Ratio 0.8 (1.0-2.7) L Triglycerides Level 67 MG/DL (0-200) Cholesterol Level 82 MG/DL (< 200) LDL Cholesterol 39 mg/dL (<100) HDL Cholesterol 38 MG/DL (40-60) L Cholesterol/HDL Ratio 2.2 (3.3-4.4) L Amylase Level 122 U/L (25-115) H Lipase 180 U/L (73-393) Vitamin B12 Level 784 PG/ML (193-986) Folate 16.4 NG/ML (3.1-17.5) Height (Feet): 6 Height (Inches): 0.00 Weight (Pounds): 190 General Appearance: no apparent distress, alert Cardiovascular: normal rate Respiratory/Chest: normal breath sounds, other - NC Abdominal Exam: soft Genitourinary/Rectal: normal rectal exam Extremities: normal range of motion Meghana Funes N.P. Jul 13, 2017 13:47 JAMEY HAQ Jul 17, 2017 08:11
--- NOTE | 2017-07-13 19:15 | Consultation ---
DATE OF CONSULTATION: 07/12/2017 NEUROLOGICAL CONSULTATION REQUESTING PHYSICIAN: John Carballo M.D. HISTORY OF PRESENT ILLNESS: The patient is a 67-year-old man seen in neurological consultation for exacerbation of seizure disorder. According to the patient's family who was present during this examination as well as review of medical records known that yesterday the patient being a resident of a rehabilitation facility was observed to have generalized clonic-tonic seizure. He was brought to emergency room being nonverbal and hypotensive. Blood pressure 85/58, respirations 10 and heart rate of 112. The patient was given Ambu bag. The patient was afebrile. Chest x-ray revealed no acute disease. Intravenous fluids started. Blood pressure remained systolic approximately 85. He is started on antibiotics. His initial diagnostic studies included a CBC study with elevated MCV and MCH. Coagulation panel was normal. Chemistry panel with blood sugar 135 and AST 39, and lipase of 757. Repeat laboratories included normal B12, folate, lipase of 180, amylase 122, BNP of 196 with normal troponins. Elevated GGT of 273. Phosphorus 5.4, BUN of 43 and creatinine 2.2. Toxicology panel positive for benzodiazepines only. Urinalysis with 5 to 10 WBCs, 2+ leukocyte esterase, 2+ protein. His CT scan of the brain revealed global cortical atrophy with periventricular chronic ischemic changes. CT of the abdomen and pelvis was done and bilateral basilar pulmonary interstitial disease, L4 compression fracture, undetermined age, and no mass lesions noted. Following admission, reportedly had another episode of generalized seizure. The patient remained hypotensive and was transferred for ICU setting. The patient described as being increasingly agitated trying to get out of the bed, trying to get out of the hospital, and his and family are trying to calm him down remaining at his bedside. Now that the patient has chronic alcoholism/last couple of years as he was under significant stress while going through adoption of the child. He had significantly increased amount of alcohol consumption, drinking two-fifth of whiskey daily for the last couple of months. On 06/22/2017, he had a witnessed three generalized seizures, was taken to [facility], noted to have significant weakness in his both lower extremities and subsequently, he was placed on Keppra, transferred to rehabilitation facility. Overall last alcohol use was only four weeks ago. No drinking and no drug use while in the rehabilitation. PAST MEDICAL HISTORY: The patient has a history of hypertension. MEDICATIONS: He is on methadone. ALLERGIES: Penicillin. SOCIAL HISTORY: Lives with his and a child. He is a smoker and he is alcoholism, but denies drug abuse. FAMILY HISTORY: Noncontributory. REVIEW OF SYSTEMS: At this time, the patient indicated he is feeling well. He would like to go home immediately. He was not a good historian. PHYSICAL EXAMINATION: GENERAL: A well-developed and well-nourished man, not in acute distress. He is restless and agitated. VITAL SIGNS: Now his vital signs remained stable, blood pressure was 122/94, pulse oximetry 100%, and heart rate of 91. HEENT: Head normocephalic. No evidence of injuries. Eyes, ears, and throat are clear. NECK: Supple. No meningeal signs. MUSCULOSKELETAL: Unremarkable. There is no deformities. Peripheral pulses 1+ symmetric. MENTAL STATUS: The patient is alert and oriented to his name and age. He is somewhat confused. He has a poor insight. He is trying to get out of the hospital stating that he will sign AMA. He would not accept any reasoning for him to complete his workup and treatment. CRANIAL NERVE II: Pupils both responding to light and accommodation. Extraocular movement intact. No nystagmus. CRANIAL NERVE V: Normal corneal responses. CRANIAL NERVE VII: No facial asymmetry. CRANIAL NERVE VIII: Normal hearing. CRANIAL NERVE IX THROUGH XII: With normal limits. MOTOR EXAMINATION: Normal muscle tone. Strength 5/5 in both upper extremities. Strength is slightly reduced 4/5 both lower extremities. Able to lift arms and legs against the gravity. Deep reflexes depressed bilaterally. Plantar response is mute. No pathological responses. Normal muscle tone. Gait not tested. The patient was quite restless. IMPRESSION: 1. History of recently developed withdrawal seizure, now with recurrence of generalized seizure, probably contributed by underlying infection and metabolic derangement. 2. Recent onset of abnormal gait, rule out alcohol-related ataxia. 3. Confusional state. 4. Urinary tract infection, rule out urosepsis. 5. Nicotine dependent. RECOMMENDATION: 1. Continue with Keppra 1000 mg b.i.d. 2. Haldol 2 mg q.6 h. IM p.r.n. for severe agitation. 3. Ativan 1 mg IV q.4 h. p.r.n. for agitation. 4. Electroencephalogram. 5. When stable, we will obtain MRI of the brain. Meanwhile, continue intravenous fluids and antibiotics. Metabolic corrections. 6. I discussed the patient's status with the family and medical staff. Thank you for allowing me to see this interesting patient in neurological consultation. Hector Solares M.D. DR: QUIANA JOB#: [id number] CC:
--- NOTE | 2017-07-13 23:33 | Infectious Diseases Prog Note ---
Assessment/Plan Problems: (1) UTI (urinary tract infection) Assessment & Plan: UCx noted. Finish a short course of vancomycin IV. Could have been contaminant. (2) Alcohol abuse (3) Seizure disorder Assessment & Plan: Poorly controlled. (4) Non-compliance Subjective Allergies: Coded Allergies: HONEY (Verified Allergy, Unknown, 07/12/17) PENICILLINS (Verified Allergy, Unknown, 07/12/17) Objective Vital Signs Last 24 Hour Vital Signs Date Time Temp Pulse Resp B/P (MAP) Pulse Ox O2 Delivery O2 Flow Rate FiO2 07/13/17 22:52 180/107 07/13/17 22:00 95 18 160/98 100 Nasal Cannula 2.0 07/13/17 21:00 90 18 156/93 100 Nasal Cannula 2.0 07/13/17 20:00 98.8 93 14 142/93 100 Nasal Cannula 2.0 07/13/17 20:00 99 07/13/17 19:00 96 18 141/86 100 Nasal Cannula 2.0 07/13/17 18:00 96 18 138/87 100 Nasal Cannula 2.0 07/13/17 17:00 98 18 141/78 100 Nasal Cannula 2.0 07/13/17 16:00 98.8 107 17 111/69 100 Nasal Cannula 2.0 07/13/17 16:00 98 07/13/17 15:00 107 18 120/74 100 Nasal Cannula 2.0 07/13/17 14:00 109 18 138/81 100 Nasal Cannula 2.0 07/13/17 13:00 101 18 137/97 100 Nasal Cannula 2.0 07/13/17 12:00 98.7 97 19 134/95 100 Nasal Cannula 2.0 07/13/17 12:00 97 07/13/17 11:00 109 18 99/88 100 Nasal Cannula 2.0 07/13/17 10:00 91 15 122/94 100 Nasal Cannula 2.0 07/13/17 09:00 120/83 07/13/17 08:00 127/97 07/13/17 08:00 96 07/13/17 07:00 90 13 109/72 100 Nasal Cannula 2.0 07/13/17 07:00 109/72 07/13/17 06:45 86 13 123/76 100 Nasal Cannula 2.0 07/13/17 06:30 88 15 115/62 96 Nasal Cannula 2.0 07/13/17 06:15 89 17 123/58 100 Nasal Cannula 2.0 07/13/17 06:00 93 14 103/69 98 Nasal Cannula 2.0 07/13/17 06:00 103/69 07/13/17 05:45 98 17 108/43 98 Nasal Cannula 2.0 07/13/17 05:30 113 24 119/78 90 Nasal Cannula 2.0 07/13/17 05:15 110 17 124/76 94 Nasal Cannula 2.0 07/13/17 05:00 111 18 105/89 98 Nasal Cannula 2.0 07/13/17 05:00 105/69 07/13/17 04:45 107 17 105/89 97 Nasal Cannula 2.0 07/13/17 04:30 106 19 105/89 98 Nasal Cannula 2.0 07/13/17 04:15 105 18 105/89 97 Nasal Cannula 2.0 07/13/17 04:00 97.4 94 18 115/40 94 Nasal Cannula 2.0 07/13/17 04:00 115/94 07/13/17 04:00 89 07/13/17 03:45 87 18 70/45 94 Nasal Cannula 2.0 07/13/17 03:30 89 11 113/83 91 Nasal Cannula 2.0 07/13/17 03:15 93 19 116/70 94 Nasal Cannula 2.0 07/13/17 03:00 93 19 99/66 96 Nasal Cannula 2.0 07/13/17 03:00 116/70 07/13/17 02:45 93 19 108/66 96 Nasal Cannula 2.0 07/13/17 02:30 93 19 120/85 96 Nasal Cannula 2.0 07/13/17 02:15 93 12 108/71 97 Nasal Cannula 2.0 07/13/17 02:00 93 15 105/60 97 Nasal Cannula 2.0 07/13/17 02:00 108/71 07/13/17 01:45 93 16 105/83 97 Nasal Cannula 2.0 07/13/17 01:30 91 14 102/68 97 Nasal Cannula 2.0 07/13/17 01:15 91 14 102/68 97 Nasal Cannula 2.0 07/13/17 01:00 130/71 07/13/17 01:00 92 16 130/71 97 Nasal Cannula 2.0 07/13/17 00:45 90 12 118/71 97 Nasal Cannula 2.0 07/13/17 00:30 88 9 107/72 97 Nasal Cannula 4.0 07/13/17 00:15 91 12 113/70 97 Nasal Cannula 4.0 07/13/17 00:00 91 07/13/17 00:00 98.7 89 14 113/70 97 Nasal Cannula 4.0 07/13/17 00:00 119/68 07/12/17 23:45 93 17 120/98 96 Nasal Cannula 4.0 07/12/17 23:38 99/68 Height (Feet): 6 Height (Inches): 0.00 Weight (Pounds): 190 Microbiology Date/Time Source Procedure Growth Status 07/12/17 19:30 Nasopharynx Influenza Types A,B Antigen (JOE) - Final Complete 07/12/17 11:30 Urine,Clean Catch Urine Culture - Preliminary Resulted Laboratory Tests Test 07/13/17 09:15 07/13/17 15:00 07/13/17 19:30 07/13/17 22:35 White Blood Count 9.8 K/UL (4.8-10.8) Red Blood Count 3.31 M/UL (4.70-6.10) L Hemoglobin 12.0 G/DL (14.2-18.0) L Hematocrit 37.1 % (42.0-52.0) L Mean Corpuscular Volume 112 FL (80-99) H Mean Corpuscular Hemoglobin 36.3 PG (27.0-31.0) H Mean Corpuscular Hemoglobin Concent 32.3 G/DL (32.0-36.0) Red Cell Distribution Width 11.7 % (11.6-14.8) Platelet Count 256 K/UL (150-450) Mean Platelet Volume 7.1 FL (6.5-10.1) Neutrophils (%) (Auto) % (45.0-75.0) Lymphocytes (%) (Auto) % (20.0-45.0) Monocytes (%) (Auto) % (1.0-10.0) Eosinophils (%) (Auto) % (0.0-3.0) Basophils (%) (Auto) % (0.0-2.0) Differential Total Cells Counted 100 Neutrophils % (Manual) 71 % (45-75) Lymphocytes % (Manual) 18 % (20-45) L Monocytes % (Manual) 9 % (1-10) Eosinophils % (Manual) 1 % (0-3) Basophils % (Manual) 1 % (0-2) Band Neutrophils 0 % (0-8) Platelet Estimate Adequate Platelet Morphology Normal Macrocytosis 1+ Prothrombin Time 10.3 SEC (9.30-11.50) Prothromb Time International Ratio 1.0 (0.9-1.1) Sodium Level 143 MMOL/L (136-145) Potassium Level 4.1 MMOL/L (3.5-5.1) Chloride Level 107 MMOL/L (98-107) Carbon Dioxide Level 29 MMOL/L (21-32) Anion Gap 7 (5-15) Blood Urea Nitrogen 23 mg/dL (7-18) H Creatinine 2.2 MG/DL (0.55-1.30) #H Estimat Glomerular Filtration Rate 36.5 mL/min (>60) Glucose Level 86 MG/DL (74-106) Uric Acid 5.1 MG/DL (2.6-7.2) Calcium Level 9.2 MG/DL (8.5-10.1) Phosphorus Level 5.4 MG/DL (2.5-4.9) H Magnesium Level 1.8 MG/DL (1.8-2.4) Total Bilirubin 0.9 MG/DL (0.2-1.0) Gamma Glutamyl Transpeptidase 273 U/L (5-85) H Aspartate Amino Transf (AST/SGOT) 25 U/L (15-37) Alanine Aminotransferase (ALT/SGPT) 26 U/L (12-78) Alkaline Phosphatase 50 U/L (46-116) Total Creatine Kinase 107 U/L (26-308) Troponin I 0.000 ng/mL (0.000-0.056) C-Reactive Protein, Quantitative 1.0 mg/dL (0.00-0.90) H Pro-B-Type Natriuretic Peptide 196 (0-125) H Total Protein 7.4 G/DL (6.4-8.2) Albumin 3.2 G/DL (3.4-5.0) L Globulin 4.2 g/dL Albumin/Globulin Ratio 0.8 (1.0-2.7) L Triglycerides Level 67 MG/DL (0-200) Cholesterol Level 82 MG/DL (< 200) LDL Cholesterol 39 mg/dL (<100) HDL Cholesterol 38 MG/DL (40-60) L Cholesterol/HDL Ratio 2.2 (3.3-4.4) L Amylase Level 122 U/L (25-115) H Lipase 180 U/L (73-393) Vitamin B12 Level 784 PG/ML (193-986) Folate 16.4 NG/ML (3.1-17.5) Urine Random Sodium 104 MEQ/L (20-110) Random Vancomycin Level Pending 6.7 ug/mL Current Medications Medications (Trade) Dose Ordered Sig/Candice Route PRN Reason Start Time Stop Time Status Last Admin Dose Admin Acetaminophen (Tylenol) 650 mg Q4H PRN ORAL Mild Pain/Temp > 100.5 07/12/17 23:00 08/11/17 18:59 Aztreonam 1 gm/ Dextrose 55 ml @ 110 mls/hr Q8HR IVPB 07/12/17 23:00 07/19/17 22:59 07/13/17 21:41 Dextrose (Dextrose 50%) STAT PRN IV Hypoglycemia 07/13/17 19:00 08/11/17 18:59 Haloperidol Lactate (Haldol) 2 mg Q6HR PRN IM For Seizures 07/13/17 13:45 08/12/17 13:44 07/13/17 14:58 Heparin Sodium (Porcine) (Heparin 5000 units/ml) 5,000 units EVERY 12 HOURS SUBQ 07/13/17 09:00 08/11/17 20:59 07/13/17 20:41 Levetiracetam (Keppra) 500 mg Q12HR ORAL 07/13/17 13:45 08/12/17 13:44 07/13/17 20:40 Lorazepam (Ativan 2mg/ml 1ml) 1 mg Q4H PRN IV For Anxiety 07/13/17 12:30 07/20/17 12:29 07/13/17 22:56 Lorazepam (Ativan 2mg/ml 1ml) 1 mg Q4H PRN IV For Seizures 07/13/17 12:30 07/20/17 12:29 Metronidazole 100 ml @ 100 mls/hr Q8HR@0000,0800,1600 IVPB 07/13/17 00:00 07/20/17 00:00 07/13/17 16:12 Norepinephrine Bitartrate 4 mg/ Dextrose 250 ml @ 0 mls/hr Q24H IV 07/12/17 23:00 08/11/17 22:59 07/12/17 23:38 Pantoprazole (Protonix) 40 mg DAILY ORAL 07/14/17 09:00 08/13/17 08:59 Sodium Chloride 1,000 ml @ 75 mls/hr [id number] IV 07/13/17 12:00 08/12/17 11:59 07/13/17 13:38 Thiamine HCl (Vitamin B1) 100 mg DAILY ORAL 07/14/17 09:00 08/13/17 08:59 Vancomycin HCl (Vanco rx to dose) 1 ea DAILY PRN MISC Per rx protocol 07/13/17 09:00 08/11/17 16:44 BRIAN SCOTT Jul 13, 2017 23:33
[2017-07-13] MEDS ORDERED: Milk of Magnesia 30ml Ud ORAL PRN (23:45)
[2017-07-14] VITALS (19 sets, daily range): BP systolic 87–167; BP diastolic 52–110
[2017-07-14] MEDS ORDERED: Vancomycin 1500mg IVPB ONE (01:00)
[2017-07-14] MEDS: Aztreonam Inj 1 GM in D5W 55 ML IVPB SCH ×2 (05:55→14:03)
[2017-07-14] MEDS: Heparin 5000 units/ml inj SUBQ SCH ×2 (08:07→20:33)
--- NOTE | 2017-07-14 08:17 | History and Physical Report ---
DATE OF ADMISSION: 07/12/2017 HISTORY OF PRESENT ILLNESS: The patient originally came in with seizure at the facility. The patient also had elevated lipase and possible UTI. CT was negative of the head and chest x-ray was negative. The patient was mildly hypotensive so the patient was admitted to telemetry. However at telemetry, the patient's blood pressure dropped even further and I transferred the patient to ICU. A bolus was given also as well. The patient is a poor historian, cannot rely upon his history. Denies any shortness of breath. Denies nausea, vomiting, or diarrhea. PAST MEDICAL HISTORY: Seizure disorder, anxiety, GERD, . PAST SURGICAL HISTORY: Unable to obtain. MEDICATIONS: Tegretol, folic acid, hydralazine, Keppra, losartan, nifedipine, omeprazole. ALLERGIES: . SOCIAL HISTORY: Denies history of alcohol or illicit drugs. Comes from skilled nursing. FAMILY HISTORY: Unable to obtain. REVIEW OF SYSTEMS: HEENT: Denies headaches. RESPIRATORY: Denies shortness of breath. CARDIOVASCULAR: Denies chest pain. GASTROINTESTINAL: Denies nausea, vomiting, or diarrhea. EXTREMITIES: Denies pain. CENTRAL NERVOUS SYSTEM: No change in vision or speech pattern; however, the patient is a poor historian. PHYSICAL EXAMINATION: GENERAL: VITAL SIGNS: Temperature is 98.8 degrees, pulse is 107, and blood pressure is 111/59. NEUROLOGIC: Reflexes are equal on both sides LABORATORY DATA: WBC of 9.4, hemoglobin of 13, platelet count . ASSESSMENT: 1. Acute renal failure with altered mental status. 2. . 3. . 4. Urinary tract infection . 5. . PLAN: . I have asked for the above mentioned diagnoses and treatment. 02:[address]: Jaycee JOB#: [id number] CC:
--- NOTE | 2017-07-14 08:17 | Consultation ---
DATE OF CONSULTATION: 07/13/2017 HEMATOLOGY/ONCOLOGY CONSULTATION CONSULTING PHYSICIAN: Kwame Berman M.D. REQUESTING PHYSICIAN: John Carballo M.D. REASON FOR CONSULTATION: Evaluation of anemia. IDENTIFICATION DATA: Dear Dr. John Carballo, The patient is a pleasant 67-year-old male with past medical history significant for hepatitis C, intravenous drug use noted in the recent past, alcoholism, history of hepatitis C untreated, recently admitted in May of this year to another facility for possible alcohol withdrawal. The patient today is brought to the hospital due to pancreatitis. He is back again with seizure with evidence of pancreatitis again. According to the , daughter, hospitalist was told he had possible gallstones and admitted. GI has evaluated the patient. Hematology/Oncology service was consulted given development of anemia. CT scan of the abdomen and pelvis reviewed. The patient bilateral duct subcutaneous fat. . PAST MEDICAL HISTORY: Seizure disorder and hypertension. PAST SURGICAL HISTORY: None noted. MEDICATIONS: Reviewed. ALLERGIES: Penicillin. SOCIAL HISTORY: He is a detention resident. History of alcohol abuse in the past. No recent drug use. FAMILY HISTORY: Difficult to obtain. REVIEW OF SYSTEMS: Difficult to obtain. PHYSICAL EXAMINATION: GENERAL: The patient is . The patient is obtunded. VITAL SIGNS: Reviewed. PULMONARY: Decreased breath sounds. Some crackles noted. CARDIOVASCULAR: Regular rate. No S3 or S4. ABDOMEN: Soft, nontender, and nondistended. Positive bowel sounds. EXTREMITIES: No cyanosis, clubbing or edema. LABORATORY DATA: Hemoglobin 12, hematocrit 37, MCV 112, and platelet count 136,000. INR of 1. BUN 23 and creatinine 2.2. Total bilirubin 0.9. ASSESSMENT AND RECOMMENDATIONS: 1. Macrocytosis, concerned about alcohol abuse. Continue to closely monitor, should improve off alcohol. 2. Anemia, decreased hemoglobin, currently at 12, likely is related to history of hemodilution. The patient 02:07 pancreatitis, the patient has evidence of pancreatitis. 3. Sepsis, currently is on antibiotics. 4. Urine toxicology positive for benzodiazepines, positive for substance abuse. 5. Hepatitis C, to be managed by GI service. 6. Pancreatitis, being seen by GI. I appreciate the consultation. Kwame Berman M.D. DR: Misael JOB#: [id number] CC:
[2017-07-14] MEDS ORDERED: Docusate 100mg cap ORAL SCH (09:00)
[2017-07-14] MEDS ORDERED: Thiamine 100mg tab ORAL SCH (09:00)
--- NOTE | 2017-07-14 12:07 | General Progress Note ---
Assessment/Plan Status Narrative refused blood work today Assessment/Plan - Acute renal failure due to Hypotension . Cr 1.2 jumped to 2.2 - Pneumonia, UTI, Sepsis, Hypotension Sz disordere Plan: fluid challenged- pressors used now off pressors with good urine out put Will continue IV fluids- Monitor renal parameters antibiotics- avoid nephrotoxics Neuro and ID fu Psych eval Subjective ROS Limited/Unobtainable: No Constitutional: Reports: other - uncoaporative Allergies: Coded Allergies: HONEY (Verified Allergy, Unknown, 07/12/17) PENICILLINS (Verified Allergy, Unknown, 07/12/17) Objective Last 24 Hour Vital Signs Date Time Temp Pulse Resp B/P (MAP) Pulse Ox O2 Delivery O2 Flow Rate FiO2 07/14/17 12:00 98.4 96 18 127/79 100 Room Air 07/14/17 11:00 94 18 100/56 100 Room Air 07/14/17 10:00 96 18 98/60 98 Room Air 07/14/17 09:00 97 18 129/52 98 Room Air 07/14/17 08:00 98 07/14/17 08:00 98.5 98 17 138/91 99 Room Air 07/14/17 07:00 85 18 101/61 95 Nasal Cannula 2.0 07/14/17 06:00 91 16 120/77 95 Nasal Cannula 2.0 07/14/17 05:00 90 16 87/60 95 Nasal Cannula 2.0 07/14/17 04:00 95 07/14/17 04:00 98.0 95 16 98/63 100 Nasal Cannula 2.0 07/14/17 03:00 99 16 130/86 100 Nasal Cannula 2.0 07/14/17 02:00 100 18 159/103 100 Nasal Cannula 2.0 07/14/17 01:00 100 18 162/110 100 Nasal Cannula 2.0 07/14/17 00:53 171/106 07/14/17 00:00 99.8 97 18 167/106 100 Nasal Cannula 2.0 07/14/17 00:00 92 07/13/17 23:00 99.8 92 18 174/113 100 Nasal Cannula 2.0 07/13/17 22:52 180/107 07/13/17 22:00 95 18 160/98 100 Nasal Cannula 2.0 07/13/17 21:00 90 18 156/93 100 Nasal Cannula 2.0 07/13/17 20:00 98.8 93 14 142/93 100 Nasal Cannula 2.0 07/13/17 20:00 99 07/13/17 19:30 Nasal Cannula 2.0 28 07/13/17 19:30 92 Nasal Cannula 2.0 28 07/13/17 19:00 96 18 141/86 100 Nasal Cannula 2.0 07/13/17 18:00 96 18 138/87 100 Nasal Cannula 2.0 07/13/17 17:00 98 18 141/78 100 Nasal Cannula 2.0 07/13/17 16:00 98.8 107 17 111/69 100 Nasal Cannula 2.0 07/13/17 16:00 98 07/13/17 15:00 107 18 120/74 100 Nasal Cannula 2.0 07/13/17 14:00 109 18 138/81 100 Nasal Cannula 2.0 07/13/17 13:00 101 18 137/97 100 Nasal Cannula 2.0 Intake and Output 07/14/17 07/15/17 19:00 07:00 Intake Total 500 ml Output Total 430 ml Balance 70 ml Intake Oral 250 ml IV Total 250 ml Output Urine Total 430 ml Laboratory Tests 07/13/17 15:00: Urine Random Sodium 104 07/13/17 19:30: Random Vancomycin Level [Pending] 07/13/17 22:35: Random Vancomycin Level 6.7 Height (Feet): 6 Height (Inches): 0.00 Weight (Pounds): 190 General Appearance: no apparent distress Objective no signs of CHF ANDREA GOODEN Jul 14, 2017 12:07
[2017-07-14 12:45] LABS: BASOPHILS % (AUTO) 1.7 % (0.0-2.0); EOSINOPHILS % (AUTO) 2.5 % (0.0-3.0); LYMPHOCYTES % (AUTO) 11.8 % (20.0-45.0); MEAN CORPUSCULAR HEMOGLOBIN 36.1 PG (27.0-31.0); MEAN CORPUSCULAR HGB CONC 33.1 G/DL (32.0-36.0); MEAN CORPUSCULAR VOLUME 109 FL (80-99); MEAN PLATELET VOLUME 7.4 FL (6.5-10.1); MONOCYTES % (AUTO) 7.6 % (1.0-10.0); NEUTROPHILS % (AUTO) 76.5 % (45.0-75.0); PLATELET COUNT 232 K/UL (150-450); RED BLOOD COUNT 3.32 M/UL (4.70-6.10); RED CELL DISTRIBUTION WIDTH 11.4 % (11.6-14.8); WHITE BLOOD COUNT 7.6 K/UL (4.8-10.8)
[2017-07-14 13:01] LABS: ALANINE AMINOTRANSFERASE 80 U/L (12-78); ALBUMIN/GLOBULIN RATIO 0.7 (1.0-2.7); ANION GAP 6 mmol/L (5-15); ASPARTATE AMINO TRANSFERASE 100 U/L (15-37); CALCIUM 9.2 MG/DL (8.5-10.1); CARBON DIOXIDE 28 MMOL/L (21-32); CHLORIDE 104 MMOL/L (98-107); GLOMERULAR FILTRATION RATE > 60 mL/min (>60); MAGNESIUM 1.7 MG/DL (1.8-2.4); PHOSPHORUS 1.9 MG/DL (2.5-4.9); POTASSIUM 3.8 MMOL/L (3.5-5.1); SODIUM 138 MMOL/L (136-145); URIC ACID 3.5 MG/DL (2.6-7.2)
[2017-07-14 13:30] LABS: BILIRUBIN,DIRECT 4.8 MG/DL (0.0-0.3)
[2017-07-14] MEDS ORDERED: Tubing IV Secondary IV ONE (14:23)
[2017-07-14] MEDS ORDERED: Potassium Phosphate 30 MM in NS 275 ML IV ONE ×2 (15:30→16:30)
--- NOTE | 2017-07-14 16:16 | GI Progress Note ---
Assessment/Plan Problems: (1) Sepsis ICD Codes: A41.9 - Sepsis, unspecified organism SNOMED: 20025308 (2) Epileptic seizure, generalized ICD Codes: G40.309 - Generalized idiopathic epilepsy and epileptic syndromes, not intractable, without status epilepticus SNOMED: 63910920 (3) Seizure disorder ICD Codes: G40.909 - Epilepsy, unspecified, not intractable, without status epilepticus SNOMED: 164566869 (4) Absence seizure ICD Codes: G40.A09 - Absence epileptic syndrome, not intractable, without status epilepticus SNOMED: 45625760 Status: unchanged Status Narrative Discussed with Dr. Haq. Assessment/Plan CT AP reviewed >> unremarkable History of hepatitis C, history of intravenous drug abuse elevated lipase >> now normal utox positive >> benzodiazepine drastic LFT elevation >> spoke to ID, patient was on Aztreonam >> abdominal U/S deferred ST eval noted >> will start patient on soft renal diet thiamine ppi fu labs, GGT fu hep panel The patient was seen and examined at bedside and all new and available data was reviewed in the patients chart. I agree with the above findings, impression and plan. (Patient seen earlier today. Signature stamp does not reflect patient encounter time.). - Brianna Haq MD Subjective Subjective limited Objective Last 24 Hour Vital Signs Date Time Temp Pulse Resp B/P (MAP) Pulse Ox O2 Delivery O2 Flow Rate FiO2 07/14/17 16:00 92 07/14/17 16:00 98.5 92 20 119/74 100 Room Air 07/14/17 15:00 91 20 124/79 100 Room Air 07/14/17 14:00 83 16 117/71 100 Room Air 07/14/17 13:00 94 15 123/79 100 Room Air 07/14/17 12:00 98.4 96 18 127/79 100 Room Air 07/14/17 12:00 96 07/14/17 11:00 94 18 100/56 100 Room Air 07/14/17 10:00 96 18 98/60 98 Room Air 07/14/17 09:00 97 18 129/52 98 Room Air 07/14/17 08:00 98 07/14/17 08:00 98.5 98 17 138/91 99 Room Air 07/14/17 07:00 85 18 101/61 95 Nasal Cannula 2.0 07/14/17 06:00 91 16 120/77 95 Nasal Cannula 2.0 07/14/17 05:00 90 16 87/60 95 Nasal Cannula 2.0 07/14/17 04:00 95 07/14/17 04:00 98.0 95 16 98/63 100 Nasal Cannula 2.0 07/14/17 03:00 99 16 130/86 100 Nasal Cannula 2.0 07/14/17 02:00 100 18 159/103 100 Nasal Cannula 2.0 07/14/17 01:00 100 18 162/110 100 Nasal Cannula 2.0 07/14/17 00:53 171/106 07/14/17 00:00 99.8 97 18 167/106 100 Nasal Cannula 2.0 07/14/17 00:00 92 07/13/17 23:00 99.8 92 18 174/113 100 Nasal Cannula 2.0 07/13/17 22:52 180/107 07/13/17 22:00 95 18 160/98 100 Nasal Cannula 2.0 07/13/17 21:00 90 18 156/93 100 Nasal Cannula 2.0 07/13/17 20:00 98.8 93 14 142/93 100 Nasal Cannula 2.0 07/13/17 20:00 99 07/13/17 19:30 Nasal Cannula 2.0 28 07/13/17 19:30 92 Nasal Cannula 2.0 28 07/13/17 19:00 96 18 141/86 100 Nasal Cannula 2.0 07/13/17 18:00 96 18 138/87 100 Nasal Cannula 2.0 07/13/17 17:00 98 18 141/78 100 Nasal Cannula 2.0 Intake and Output 07/14/17 07/15/17 19:00 07:00 Intake Total 1030 ml Output Total 980 ml Balance 50 ml Intake Oral 400 ml IV Total 630 ml Output Urine Total 980 ml Laboratory Tests Test 07/13/17 19:30 07/13/17 22:35 07/14/17 12:05 Random Vancomycin Level Pending 6.7 ug/mL White Blood Count 7.6 K/UL (4.8-10.8) Red Blood Count 3.32 M/UL (4.70-6.10) L Hemoglobin 12.0 G/DL (14.2-18.0) L Hematocrit 36.2 % (42.0-52.0) L Mean Corpuscular Volume 109 FL (80-99) H Mean Corpuscular Hemoglobin 36.1 PG (27.0-31.0) H Mean Corpuscular Hemoglobin Concent 33.1 G/DL (32.0-36.0) Red Cell Distribution Width 11.4 % (11.6-14.8) L Platelet Count 232 K/UL (150-450) Mean Platelet Volume 7.4 FL (6.5-10.1) Neutrophils (%) (Auto) 76.5 % (45.0-75.0) H Lymphocytes (%) (Auto) 11.8 % (20.0-45.0) L Monocytes (%) (Auto) 7.6 % (1.0-10.0) Eosinophils (%) (Auto) 2.5 % (0.0-3.0) Basophils (%) (Auto) 1.7 % (0.0-2.0) Sodium Level 138 MMOL/L (136-145) Potassium Level 3.8 MMOL/L (3.5-5.1) Chloride Level 104 MMOL/L (98-107) Carbon Dioxide Level 28 MMOL/L (21-32) Anion Gap 6 mmol/L (5-15) Blood Urea Nitrogen 20 mg/dL (7-18) H Creatinine 1.0 MG/DL (0.55-1.30) # Estimat Glomerular Filtration Rate > 60 mL/min (>60) Glucose Level 99 MG/DL (74-106) Uric Acid 3.5 MG/DL (2.6-7.2) Calcium Level 9.2 MG/DL (8.5-10.1) Phosphorus Level 1.9 MG/DL (2.5-4.9) L Magnesium Level 1.7 MG/DL (1.8-2.4) L Total Bilirubin 5.3 MG/DL (0.2-1.0) H Direct Bilirubin 4.8 MG/DL (0.0-0.3) H Gamma Glutamyl Transpeptidase 1092 U/L (5-85) H Aspartate Amino Transf (AST/SGOT) 100 U/L (15-37) H Alanine Aminotransferase (ALT/SGPT) 80 U/L (12-78) H Alkaline Phosphatase 223 U/L (46-116) H Total Creatine Kinase 62 U/L (26-308) Pro-B-Type Natriuretic Peptide 515 pg/mL (0-125) H Total Protein 7.0 G/DL (6.4-8.2) Albumin 2.8 G/DL (3.4-5.0) L Globulin 4.2 g/dL Albumin/Globulin Ratio 0.7 (1.0-2.7) L Hepatitis A IgM Antibody Pending Hepatitis B Surface Antigen Pending Hepatitis B Core IgM Antibody Pending Hepatitis C Antibody Pending Height (Feet): 6 Height (Inches): 0.00 Weight (Pounds): 190 General Appearance: alert Cardiovascular: normal rate Respiratory/Chest: normal breath sounds, no respiratory distress Abdominal Exam: non tender, soft Extremities: non-tender Meghana Funes N.P. Jul 14, 2017 16:16 JAMEY HAQ Jul 17, 2017 09:44
[2017-07-14] MEDS ORDERED: LORazepam Inj 2mg/ml 1ml IV PRN ×2 (16:30)
--- NOTE | 2017-07-14 16:32 | Neurology Progress Note ---
Interim History Interim History ROS Limited/Unobtainable: Yes Complaints: feel better Events: calmer sleepy Objective Physical Exam Last Vital Signs Date Time Temp Pulse Resp B/P (MAP) Pulse Ox O2 Delivery O2 Flow Rate FiO2 07/14/17 16:00 92 07/14/17 16:00 98.5 20 119/74 100 Room Air 07/14/17 07:00 2.0 07/13/17 19:30 28 Laboratory Tests Test 07/13/17 19:30 07/13/17 22:35 07/14/17 12:05 Random Vancomycin Level Pending 6.7 ug/mL White Blood Count 7.6 K/UL (4.8-10.8) Red Blood Count 3.32 M/UL (4.70-6.10) L Hemoglobin 12.0 G/DL (14.2-18.0) L Hematocrit 36.2 % (42.0-52.0) L Mean Corpuscular Volume 109 FL (80-99) H Mean Corpuscular Hemoglobin 36.1 PG (27.0-31.0) H Mean Corpuscular Hemoglobin Concent 33.1 G/DL (32.0-36.0) Red Cell Distribution Width 11.4 % (11.6-14.8) L Platelet Count 232 K/UL (150-450) Mean Platelet Volume 7.4 FL (6.5-10.1) Neutrophils (%) (Auto) 76.5 % (45.0-75.0) H Lymphocytes (%) (Auto) 11.8 % (20.0-45.0) L Monocytes (%) (Auto) 7.6 % (1.0-10.0) Eosinophils (%) (Auto) 2.5 % (0.0-3.0) Basophils (%) (Auto) 1.7 % (0.0-2.0) Sodium Level 138 MMOL/L (136-145) Potassium Level 3.8 MMOL/L (3.5-5.1) Chloride Level 104 MMOL/L (98-107) Carbon Dioxide Level 28 MMOL/L (21-32) Anion Gap 6 mmol/L (5-15) Blood Urea Nitrogen 20 mg/dL (7-18) H Creatinine 1.0 MG/DL (0.55-1.30) # Estimat Glomerular Filtration Rate > 60 mL/min (>60) Glucose Level 99 MG/DL (74-106) Uric Acid 3.5 MG/DL (2.6-7.2) Calcium Level 9.2 MG/DL (8.5-10.1) Phosphorus Level 1.9 MG/DL (2.5-4.9) L Magnesium Level 1.7 MG/DL (1.8-2.4) L Total Bilirubin 5.3 MG/DL (0.2-1.0) H Direct Bilirubin 4.8 MG/DL (0.0-0.3) H Gamma Glutamyl Transpeptidase 1092 U/L (5-85) H Aspartate Amino Transf (AST/SGOT) 100 U/L (15-37) H Alanine Aminotransferase (ALT/SGPT) 80 U/L (12-78) H Alkaline Phosphatase 223 U/L (46-116) H Total Creatine Kinase 62 U/L (26-308) Pro-B-Type Natriuretic Peptide 515 pg/mL (0-125) H Total Protein 7.0 G/DL (6.4-8.2) Albumin 2.8 G/DL (3.4-5.0) L Globulin 4.2 g/dL Albumin/Globulin Ratio 0.7 (1.0-2.7) L Hepatitis A IgM Antibody Pending Hepatitis B Surface Antigen Pending Hepatitis B Core IgM Antibody Pending Hepatitis C Antibody Pending General: well developed, well nourished, no acute distress Head: normocophalic, atraumatic Neck: no rigidity Neurologic Exam Mental Status: other - ox2 more coherent Speech: normal speech Language: normal language Cranial Nerve II: fundus normal Cranial Nerves III, IV, : PERRLA Cranial Nerve V: normal facial sensations Cranial Nerve VII: no facial asymmetry Cranial Nerve VIII: normal hearing Cranial Nerve IX: normal palate elevation Cranial Nerve X: no voice hoarseness Cranial Nerve XII: tongue midline Motor System: no involuntary movement, no muscle wasting, other - 4/5 both legs Sensory: normal pinprick Coordination: normal finger to nose bilaterally Deep Tendon Reflexes: 0 bicep (L), 0 bicep (R), 0 tricep (L), 0 tricep (R), 0 brachioradialis (L), 0 brachioradialis (R), 0 knee (L), 0 knee (R), 0 ankle (L) , 0 ankle (R) Reflexes: mute plantar (L), mute plantar (R) Stance: other Gait: other Impression/Recommendations Problems: (1) Epileptic seizure, generalized (2) UTI (urinary tract infection) (3) Abnormality of gait Status: unchanged Recommendations # neuroconsult done, ordrs placed. # [id number] pt/ot reduce Keppra 250 bid EMILIA HAWTHORNE Jul 14, 2017 16:32
[2017-07-14] MEDS ORDERED: Milk of Magnesia 30ml Ud ORAL PRN (17:00)
[2017-07-14] MEDS: Docusate 100mg cap ORAL SCH (17:24)
[2017-07-14] MEDS ORDERED: Haloperidol 5mg/ml Inj IM PRN (18:00)
--- NOTE | 2017-07-14 18:05 | Pulmonology Progress Note ---
Assessment/Plan Assessment/Plan 1. Possible pneumonia. CT abdomen reviewed; no sign of pneumonia; has non- specific interstitial thickening. 2. Urinary tract infection. await urine culture 3. Sepsis with hypotension due to the above. Agree with vancomycin with cefepime empiric coverage. 4. Epileptic seizure, generalized, Respiratory status is stable Subjective Interval Events: Transferred out of ICU Constitutional: Reports: no symptoms HEENT: Repors: no symptoms Cardiovascular: Reports: no symptoms Allergies: Coded Allergies: HONEY (Verified Allergy, Unknown, 07/12/17) PENICILLINS (Verified Allergy, Unknown, 07/12/17) Objective Last 24 Hour Vital Signs Date Time Temp Pulse Resp B/P (MAP) Pulse Ox O2 Delivery O2 Flow Rate FiO2 07/14/17 17:00 98.5 92 15 144/82 100 Room Air 07/14/17 16:00 92 07/14/17 16:00 98.5 92 20 119/74 100 Room Air 07/14/17 15:00 91 20 124/79 100 Room Air 07/14/17 14:00 83 16 117/71 100 Room Air 07/14/17 13:00 94 15 123/79 100 Room Air 07/14/17 12:00 98.4 96 18 127/79 100 Room Air 07/14/17 12:00 96 07/14/17 11:00 94 18 100/56 100 Room Air 07/14/17 10:00 96 18 98/60 98 Room Air 07/14/17 09:00 97 18 129/52 98 Room Air 07/14/17 08:00 98 07/14/17 08:00 98.5 98 17 138/91 99 Room Air 07/14/17 07:00 85 18 101/61 95 Nasal Cannula 2.0 07/14/17 06:00 91 16 120/77 95 Nasal Cannula 2.0 07/14/17 05:00 90 16 87/60 95 Nasal Cannula 2.0 07/14/17 04:00 95 07/14/17 04:00 98.0 95 16 98/63 100 Nasal Cannula 2.0 07/14/17 03:00 99 16 130/86 100 Nasal Cannula 2.0 07/14/17 02:00 100 18 159/103 100 Nasal Cannula 2.0 07/14/17 01:00 100 18 162/110 100 Nasal Cannula 2.0 07/14/17 00:53 171/106 07/14/17 00:00 99.8 97 18 167/106 100 Nasal Cannula 2.0 07/14/17 00:00 92 07/13/17 23:00 99.8 92 18 174/113 100 Nasal Cannula 2.0 07/13/17 22:52 180/107 07/13/17 22:00 95 18 160/98 100 Nasal Cannula 2.0 07/13/17 21:00 90 18 156/93 100 Nasal Cannula 2.0 07/13/17 20:00 98.8 93 14 142/93 100 Nasal Cannula 2.0 07/13/17 20:00 99 07/13/17 19:30 Nasal Cannula 2.0 28 07/13/17 19:30 92 Nasal Cannula 2.0 28 07/13/17 19:00 96 18 141/86 100 Nasal Cannula 2.0 Intake and Output 07/14/17 07/15/17 19:00 07:00 Intake Total 1030 ml Output Total 980 ml Balance 50 ml Intake Oral 400 ml IV Total 630 ml Output Urine Total 980 ml General Appearance: no acute distress HEENT: normocephalic Respiratory/Chest: chest wall non-tender, decreased breath sounds Cardiovascular: normal peripheral pulses, normal rate Microbiology Date/Time Source Procedure Growth Status 07/12/17 19:30 Nasopharynx Influenza Types A,B Antigen (JOE) - Final Complete 07/12/17 11:30 Urine,Clean Catch Urine Culture - Preliminary Gram Positive Cocci Resulted Laboratory Tests 07/13/17 19:30: Random Vancomycin Level [Pending] 07/13/17 22:35: Random Vancomycin Level 6.7 07/14/17 12:05: White Blood Count 7.6, Red Blood Count 3.32L, Hemoglobin 12.0L, Hematocrit 36.2L , Mean Corpuscular Volume 109H, Mean Corpuscular Hemoglobin 36.1H, Mean Corpuscular Hemoglobin Concent 33.1, Red Cell Distribution Width 11.4L, Platelet Count 232, Mean Platelet Volume 7.4, Neutrophils (%) (Auto) 76.5H, Lymphocytes (%) (Auto) 11.8L, Monocytes (%) (Auto) 7.6, Eosinophils (%) (Auto) 2.5, Basophils (%) (Auto) 1.7, Sodium Level 138, Potassium Level 3.8, Chloride Level 104, Carbon Dioxide Level 28, Anion Gap 6, Blood Urea Nitrogen 20H, Creatinine 1.0#, Estimat Glomerular Filtration Rate > 60, Glucose Level 99, Uric Acid 3.5, Calcium Level 9.2, Phosphorus Level 1.9L, Magnesium Level 1.7L, Total Bilirubin 5.3H, Direct Bilirubin 4.8H, Gamma Glutamyl Transpeptidase 1092H , Aspartate Amino Transf (AST/SGOT) 100H, Alanine Aminotransferase (ALT/SGPT) 80H, Alkaline Phosphatase 223H, Total Creatine Kinase 62, Pro-B-Type Natriuretic Peptide 515H, Total Protein 7.0, Albumin 2.8L, Globulin 4.2, Albumin /Globulin Ratio 0.7L, Hepatitis A IgM Antibody [Pending], Hepatitis B Surface Antigen [Pending], Hepatitis B Core IgM Antibody [Pending], Hepatitis C Antibody [Pending] Current Medications Medications (Trade) Dose Ordered Sig/Candice Route PRN Reason Start Time Stop Time Status Last Admin Dose Admin Acetaminophen (Tylenol) 650 mg Q4H PRN ORAL Mild Pain/Temp > 100.5 07/14/17 17:00 08/11/17 16:59 Dextrose (Dextrose 50%) STAT PRN IV Hypoglycemia 07/14/17 17:00 08/11/17 16:59 Docusate Sodium (Colace) 100 mg TWICE A DAY ORAL 07/14/17 18:00 08/13/17 08:59 07/14/17 17:24 Haloperidol Lactate (Haldol) 2 mg Q6HR PRN IM For Seizures 07/14/17 18:00 08/12/17 13:44 UNV Heparin Sodium (Porcine) (Heparin 5000 units/ml) 5,000 units EVERY 12 HOURS SUBQ 07/14/17 21:00 08/11/17 20:59 Levetiracetam (Keppra) 250 mg Q12HR ORAL 07/14/17 21:00 08/13/17 20:59 Lorazepam (Ativan 2mg/ml 1ml) 1 mg Q4H PRN IV For Anxiety 07/14/17 16:30 07/20/17 12:29 Lorazepam (Ativan 2mg/ml 1ml) 1 mg Q4H PRN IV For Seizures 07/14/17 16:30 07/20/17 12:29 Magnesium Hydroxide (Mom) 30 ml Q4H PRN ORAL Constipation First Line Agent 07/14/17 17:00 08/13/17 16:59 Metronidazole 100 ml @ 100 mls/hr Q8HR@0000,0800,1600 IVPB 07/14/17 17:00 07/21/17 16:59 07/14/17 17:24 Pantoprazole (Protonix) 40 mg DAILY ORAL 07/15/17 09:00 08/13/17 08:59 Potassium Phosphate 30 mm/ Sodium Chloride 285 ml @ 47.5 mls/hr ONCE ONCE IV 07/14/17 16:30 07/14/17 22:29 07/14/17 16:30 Sennosides (Senokot) 8.6 mg DAILY ORAL 07/15/17 09:00 08/13/17 08:59 Sodium Chloride 1,000 ml @ 75 mls/hr [id number] IV 07/14/17 17:00 08/12/17 16:59 07/14/17 17:20 Thiamine HCl (Vitamin B1) 100 mg DAILY ORAL 07/15/17 09:00 08/13/17 08:59 Vancomycin HCl (Vanco rx to dose) 1 ea DAILY PRN MISC Per rx protocol 07/15/17 09:00 08/11/17 16:44 Calrk Brian MD Jul 14, 2017 18:05
--- NOTE | 2017-07-14 18:25 | General Progress Note ---
Assessment/Plan Assessment/Plan ASSESSMENT AND RECOMMENDATIONS: 1. Macrocytosis, likely due to alcohol abuse. Continue to closely monitor, should improve off alcohol. 2. Anemia, decreased hemoglobin, currently at 12, likely is related to history of hemodilution. 3. Possible pneumonia. ID following 3. Sepsis, currently is on antibiotics. 4. Urine toxicology positive for benzodiazepines, positive for substance abuse. 5. Hepatitis C, to be managed by GI service. Hepatitis panel pending Subjective Constitutional: Reports: no symptoms HEENT: Reports: no symptoms Cardiovascular: Reports: no symptoms Respiratory: Reports: no symptoms Gastrointestinal/Abdominal: Reports: no symptoms Genitourinary: Reports: no symptoms Neurologic/Psychiatric: Reports: no symptoms Endocrine: Reports: no symptoms Hematologic/Lymphatic: Reports: no symptoms Allergies: Coded Allergies: HONEY (Verified Allergy, Unknown, 07/12/17) PENICILLINS (Verified Allergy, Unknown, 07/12/17) Subjective VSS, afebrile Objective Last 24 Hour Vital Signs Date Time Temp Pulse Resp B/P (MAP) Pulse Ox O2 Delivery O2 Flow Rate FiO2 07/14/17 17:00 98.5 92 15 144/82 100 Room Air 07/14/17 16:00 92 07/14/17 16:00 98.5 92 20 119/74 100 Room Air 07/14/17 15:00 91 20 124/79 100 Room Air 07/14/17 14:00 83 16 117/71 100 Room Air 07/14/17 13:00 94 15 123/79 100 Room Air 07/14/17 12:00 98.4 96 18 127/79 100 Room Air 07/14/17 12:00 96 07/14/17 11:00 94 18 100/56 100 Room Air 07/14/17 10:00 96 18 98/60 98 Room Air 07/14/17 09:00 97 18 129/52 98 Room Air 07/14/17 08:00 98 07/14/17 08:00 98.5 98 17 138/91 99 Room Air 07/14/17 07:00 85 18 101/61 95 Nasal Cannula 2.0 07/14/17 06:00 91 16 120/77 95 Nasal Cannula 2.0 07/14/17 05:00 90 16 87/60 95 Nasal Cannula 2.0 07/14/17 04:00 95 07/14/17 04:00 98.0 95 16 98/63 100 Nasal Cannula 2.0 07/14/17 03:00 99 16 130/86 100 Nasal Cannula 2.0 07/14/17 02:00 100 18 159/103 100 Nasal Cannula 2.0 07/14/17 01:00 100 18 162/110 100 Nasal Cannula 2.0 07/14/17 00:53 171/106 07/14/17 00:00 99.8 97 18 167/106 100 Nasal Cannula 2.0 07/14/17 00:00 92 07/13/17 23:00 99.8 92 18 174/113 100 Nasal Cannula 2.0 07/13/17 22:52 180/107 07/13/17 22:00 95 18 160/98 100 Nasal Cannula 2.0 07/13/17 21:00 90 18 156/93 100 Nasal Cannula 2.0 07/13/17 20:00 98.8 93 14 142/93 100 Nasal Cannula 2.0 07/13/17 20:00 99 07/13/17 19:30 Nasal Cannula 2.0 28 07/13/17 19:30 92 Nasal Cannula 2.0 28 07/13/17 19:00 96 18 141/86 100 Nasal Cannula 2.0 Intake and Output 07/14/17 07/15/17 19:00 07:00 Intake Total 1030 ml Output Total 980 ml Balance 50 ml Intake Oral 400 ml IV Total 630 ml Output Urine Total 980 ml Laboratory Tests 07/13/17 19:30: Random Vancomycin Level [Pending] 07/13/17 22:35: Random Vancomycin Level 6.7 07/14/17 12:05: White Blood Count 7.6, Red Blood Count 3.32L, Hemoglobin 12.0L, Hematocrit 36.2L , Mean Corpuscular Volume 109H, Mean Corpuscular Hemoglobin 36.1H, Mean Corpuscular Hemoglobin Concent 33.1, Red Cell Distribution Width 11.4L, Platelet Count 232, Mean Platelet Volume 7.4, Neutrophils (%) (Auto) 76.5H, Lymphocytes (%) (Auto) 11.8L, Monocytes (%) (Auto) 7.6, Eosinophils (%) (Auto) 2.5, Basophils (%) (Auto) 1.7, Sodium Level 138, Potassium Level 3.8, Chloride Level 104, Carbon Dioxide Level 28, Anion Gap 6, Blood Urea Nitrogen 20H, Creatinine 1.0#, Estimat Glomerular Filtration Rate > 60, Glucose Level 99, Uric Acid 3.5, Calcium Level 9.2, Phosphorus Level 1.9L, Magnesium Level 1.7L, Total Bilirubin 5.3H, Direct Bilirubin 4.8H, Gamma Glutamyl Transpeptidase 1092H , Aspartate Amino Transf (AST/SGOT) 100H, Alanine Aminotransferase (ALT/SGPT) 80H, Alkaline Phosphatase 223H, Total Creatine Kinase 62, Pro-B-Type Natriuretic Peptide 515H, Total Protein 7.0, Albumin 2.8L, Globulin 4.2, Albumin /Globulin Ratio 0.7L, Hepatitis A IgM Antibody [Pending], Hepatitis B Surface Antigen [Pending], Hepatitis B Core IgM Antibody [Pending], Hepatitis C Antibody [Pending] Height (Feet): 6 Height (Inches): 0.00 Weight (Pounds): 190 General Appearance: no apparent distress EENT: normal ENT inspection Neck: normal inspection Abdomen: no organomegaly Pelvis: no masses Extremities: non-tender Edema: trace edema Kwame Berman Jul 14, 2017 18:25
--- NOTE | 2017-07-14 20:19 | General Progress Note ---
Assessment/Plan Problem List: (1) Seizure disorder ICD Codes: G40.909 - Epilepsy, unspecified, not intractable, without status epilepticus SNOMED: 989963386 (2) Epileptic seizure, generalized ICD Codes: G40.309 - Generalized idiopathic epilepsy and epileptic syndromes, not intractable, without status epilepticus SNOMED: 56457260 (3) Abnormality of gait ICD Codes: R26.9 - Unspecified abnormalities of gait and mobility SNOMED: 94332450 Status: progressing Assessment/Plan ams seizure monitor for sz afebrile vitals improving Subjective ROS Limited/Unobtainable: Yes Allergies: Coded Allergies: HONEY (Verified Allergy, Unknown, 07/12/17) PENICILLINS (Verified Allergy, Unknown, 07/12/17) Objective Last 24 Hour Vital Signs Date Time Temp Pulse Resp B/P (MAP) Pulse Ox O2 Delivery O2 Flow Rate FiO2 07/14/17 20:02 99.3 94 22 136/84 97 Room Air 94 07/14/17 19:34 95 Nasal Cannula 2.0 28 07/14/17 19:34 Nasal Cannula 2.0 28 07/14/17 17:00 98.5 92 15 144/82 100 Room Air 07/14/17 16:30 91 07/14/17 16:00 92 07/14/17 16:00 98.5 92 20 119/74 100 Room Air 07/14/17 15:00 91 20 124/79 100 Room Air 07/14/17 14:00 83 16 117/71 100 Room Air 07/14/17 13:00 94 15 123/79 100 Room Air 07/14/17 12:00 98.4 96 18 127/79 100 Room Air 07/14/17 12:00 96 07/14/17 11:00 94 18 100/56 100 Room Air 07/14/17 10:00 96 18 98/60 98 Room Air 07/14/17 09:00 97 18 129/52 98 Room Air 07/14/17 08:00 98 07/14/17 08:00 98.5 98 17 138/91 99 Room Air 07/14/17 07:00 85 18 101/61 95 Nasal Cannula 2.0 07/14/17 06:00 91 16 120/77 95 Nasal Cannula 2.0 07/14/17 05:00 90 16 87/60 95 Nasal Cannula 2.0 07/14/17 04:00 95 07/14/17 04:00 98.0 95 16 98/63 100 Nasal Cannula 2.0 07/14/17 03:00 99 16 130/86 100 Nasal Cannula 2.0 07/14/17 02:00 100 18 159/103 100 Nasal Cannula 2.0 07/14/17 01:00 100 18 162/110 100 Nasal Cannula 2.0 07/14/17 00:53 171/106 07/14/17 00:00 99.8 97 18 167/106 100 Nasal Cannula 2.0 07/14/17 00:00 92 07/13/17 23:00 99.8 92 18 174/113 100 Nasal Cannula 2.0 07/13/17 22:52 180/107 07/13/17 22:00 95 18 160/98 100 Nasal Cannula 2.0 07/13/17 21:00 90 18 156/93 100 Nasal Cannula 2.0 Intake and Output 07/14/17 07/15/17 19:00 07:00 Intake Total 1270 ml Output Total 980 ml Balance 290 ml Intake Oral 640 ml IV Total 630 ml Output Urine Total 980 ml Laboratory Tests 07/13/17 22:35: Random Vancomycin Level 6.7 07/14/17 12:05: White Blood Count 7.6, Red Blood Count 3.32L, Hemoglobin 12.0L, Hematocrit 36.2L , Mean Corpuscular Volume 109H, Mean Corpuscular Hemoglobin 36.1H, Mean Corpuscular Hemoglobin Concent 33.1, Red Cell Distribution Width 11.4L, Platelet Count 232, Mean Platelet Volume 7.4, Neutrophils (%) (Auto) 76.5H, Lymphocytes (%) (Auto) 11.8L, Monocytes (%) (Auto) 7.6, Eosinophils (%) (Auto) 2.5, Basophils (%) (Auto) 1.7, Sodium Level 138, Potassium Level 3.8, Chloride Level 104, Carbon Dioxide Level 28, Anion Gap 6, Blood Urea Nitrogen 20H, Creatinine 1.0#, Estimat Glomerular Filtration Rate > 60, Glucose Level 99, Uric Acid 3.5, Calcium Level 9.2, Phosphorus Level 1.9L, Magnesium Level 1.7L, Total Bilirubin 5.3H, Direct Bilirubin 4.8H, Gamma Glutamyl Transpeptidase 1092H , Aspartate Amino Transf (AST/SGOT) 100H, Alanine Aminotransferase (ALT/SGPT) 80H, Alkaline Phosphatase 223H, Total Creatine Kinase 62, Pro-B-Type Natriuretic Peptide 515H, Total Protein 7.0, Albumin 2.8L, Globulin 4.2, Albumin /Globulin Ratio 0.7L, Hepatitis A IgM Antibody [Pending], Hepatitis B Surface Antigen [Pending], Hepatitis B Core IgM Antibody [Pending], Hepatitis C Antibody [Pending] Height (Feet): 6 Height (Inches): 0.00 Weight (Pounds): 190 General Appearance: confused Respiratory/Chest: lungs clear John Carballo MD Jul 14, 2017 20:19
--- NOTE | 2017-07-14 20:48 | Cardiology Report ---
APPROVED REPORT EXAM: Two-dimensional and M-mode echocardiogram with Doppler and color Doppler. INDICATION Congestive Heart Failure M-Mode DIMENSIONS IVSd0.8 (0.7-1.1cm)Left Atrium (MM)2.6 (1.6-4.0cm) LVDd4.5 (3.5-5.6cm)Aortic Root3.1 (2.0-3.7cm) PWd1.0 (0.7-1.1cm)Aortic Cusp Exc.2.0 (1.5-2.0cm) LVDs2.6 (2.5-4.0cm) PWs1.3 cm Technically difficult study with poor valvualr and endocardial definition Grossly normal left ventricular chamber size, systolic function and wall motion. Left ventricular ejection fraction estimated to be 60-65%. No evidence of left ventricular hypertrophy. No evidence of pericardial or pleural effusion. All other cardiac chamber sizes are within normal limits. Focal aortic valve sclerosis with adequate cusp excursion. Thickened mitral valve leaflets with normal excursion. Mild mitral annulus and aortic root calcification. Pulmonic valve is well visualized. Normal tricuspid valve structure. IVC is normal in size and collapsible with respiration. A color flow and spectral Doppler study was performed and revealed: No aortic regurgitation. No mitral regurgitation. Mitral diastolic velocities suggest reduced left ventricular relaxation c/w diastolic dysfunction grade 1. No tricuspid regurgitation.
[2017-07-15] VITALS: BP 136/83
[2017-07-15 04:00] VITALS: BP 98/66
[2017-07-15 08:00] VITALS: BP 149/93
[2017-07-15 08:14] LABS: BASOPHILS % (AUTO) 1.9 % (0.0-2.0); LYMPHOCYTES % (AUTO) 16.8 % (20.0-45.0); MEAN CORPUSCULAR HEMOGLOBIN 36.2 PG (27.0-31.0); MEAN CORPUSCULAR HGB CONC 33.8 G/DL (32.0-36.0); MEAN CORPUSCULAR VOLUME 107 FL (80-99); MEAN PLATELET VOLUME 7.9 FL (6.5-10.1); MONOCYTES % (AUTO) 9.5 % (1.0-10.0); NEUTROPHILS % (AUTO) 69.9 % (45.0-75.0); PLATELET COUNT 214 K/UL (150-450); RED BLOOD COUNT 3.28 M/UL (4.70-6.10); RED CELL DISTRIBUTION WIDTH 11.3 % (11.6-14.8); WHITE BLOOD COUNT 5.3 K/UL (4.8-10.8)
[2017-07-15 08:48] LABS: CRP QUANT 1.3 mg/dL (0.00-0.90); MAGNESIUM 1.6 MG/DL (1.8-2.4); PHOSPHORUS 2.2 MG/DL (2.5-4.9)
[2017-07-15] MEDS ORDERED: Thiamine 100mg tab ORAL SCH (09:00)
[2017-07-15 09:07] LABS: ALANINE AMINOTRANSFERASE 74 U/L (12-78); ALBUMIN/GLOBULIN RATIO 0.6 (1.0-2.7); ANION GAP 9 mmol/L (5-15); ASPARTATE AMINO TRANSFERASE 83 U/L (15-37); CALCIUM 8.6 MG/DL (8.5-10.1); CARBON DIOXIDE 23 MMOL/L (21-32); CHLORIDE 105 MMOL/L (98-107); CREATININE 0.9 MG/DL (0.55-1.30); GLOMERULAR FILTRATION RATE > 60 mL/min (>60); POTASSIUM 3.7 MMOL/L (3.5-5.1); SODIUM 137 MMOL/L (136-145); TOTAL PROTEIN 6.6 G/DL (6.4-8.2)
[2017-07-15 09:10] LABS: BILIRUBIN,DIRECT 4.7 MG/DL (0.0-0.3)
[2017-07-15] MEDS: Docusate 100mg cap ORAL SCH (11:14)
[2017-07-15] MEDS ORDERED: Sodium Phosphate 30 MM in NS 275 ML IVPB ONE (11:15)
[2017-07-15] MEDS: Heparin 5000 units/ml inj SUBQ SCH (11:15)
[2017-07-15 12:00] VITALS: BP 153/86
--- NOTE | 2017-07-15 12:16 | General Progress Note ---
Assessment/Plan Problem List: (1) Seizure disorder ICD Codes: G40.909 - Epilepsy, unspecified, not intractable, without status epilepticus SNOMED: 599546462 (2) Epileptic seizure, generalized ICD Codes: G40.309 - Generalized idiopathic epilepsy and epileptic syndromes, not intractable, without status epilepticus SNOMED: 00450042 (3) Abnormality of gait ICD Codes: R26.9 - Unspecified abnormalities of gait and mobility SNOMED: 00473843 Status: progressing Assessment/Plan afebrile elev lft seizure none today vitals improving Subjective ROS Limited/Unobtainable: Yes Constitutional: Reports: no symptoms Allergies: Coded Allergies: HONEY (Verified Allergy, Unknown, 07/12/17) PENICILLINS (Verified Allergy, Unknown, 07/12/17) Objective Last 24 Hour Vital Signs Date Time Temp Pulse Resp B/P (MAP) Pulse Ox O2 Delivery O2 Flow Rate FiO2 07/15/17 08:00 98.4 81 20 149/93 100 Room Air 100 07/15/17 04:00 98.4 66 20 98/66 98 Room Air 66 07/15/17 04:00 90 07/15/17 00:00 87 07/15/17 00:00 98.4 92 22 136/83 93 Room Air 92 07/14/17 20:02 99.3 94 22 136/84 97 Room Air 94 07/14/17 19:34 95 Nasal Cannula 2.0 28 07/14/17 19:34 Nasal Cannula 2.0 28 07/14/17 17:00 98.5 92 15 144/82 100 Room Air 07/14/17 16:30 91 07/14/17 16:00 92 07/14/17 16:00 98.5 92 20 119/74 100 Room Air 07/14/17 15:00 91 20 124/79 100 Room Air 07/14/17 14:00 83 16 117/71 100 Room Air 07/14/17 13:00 94 15 123/79 100 Room Air Laboratory Tests 07/15/17 08:00: White Blood Count 5.3, Red Blood Count 3.28L, Hemoglobin 11.9L, Hematocrit 35.1L , Mean Corpuscular Volume 107H, Mean Corpuscular Hemoglobin 36.2H, Mean Corpuscular Hemoglobin Concent 33.8, Red Cell Distribution Width 11.3L, Platelet Count 214, Mean Platelet Volume 7.9, Neutrophils (%) (Auto) 69.9, Lymphocytes (%) (Auto) 16.8L, Monocytes (%) (Auto) 9.5, Eosinophils (%) (Auto) 2.0, Basophils (%) (Auto) 1.9, Sodium Level 137, Potassium Level 3.7, Chloride Level 105, Carbon Dioxide Level 23, Anion Gap 9, Blood Urea Nitrogen 12, Creatinine 0.9, Estimat Glomerular Filtration Rate > 60, Glucose Level 101, Calcium Level 8.6, Phosphorus Level 2.2L, Magnesium Level 1.6L, Total Bilirubin 5.4H, Direct Bilirubin 4.7H, Gamma Glutamyl Transpeptidase 1158H, Aspartate Amino Transf (AST/SGOT) 83H, Alanine Aminotransferase (ALT/SGPT) 74, Alkaline Phosphatase 233H, C-Reactive Protein, Quantitative 1.3H, Pro-B-Type Natriuretic Peptide 290H, Total Protein 6.6, Albumin 2.6L, Globulin 4.0, Albumin/Globulin Ratio 0.6L, Random Vancomycin Level 3.8 Height (Feet): 6 Height (Inches): 0.00 Weight (Pounds): 190 EENT: PERRL/EOMI Neck: supple Cardiovascular: normal rate Respiratory/Chest: lungs clear Abdomen: soft John Carballo MD Jul 15, 2017 12:16
--- NOTE | 2017-07-15 12:17 | General Progress Note ---
Assessment/Plan Status: stable - from renal stand Assessment/Plan - Acute renal failure due to Hypotension . Cr 1.2 jumped to 2.2 - Pneumonia, UTI, Sepsis, Hypotension Sz disordere abnormal LFTs Plan: PO Phos and Mag pressors used on admit now off pressors with good urine out put DC IV Monitor renal parameters antibiotics- avoid nephrotoxics Neuro and ID fu Psych eval ? DC planning? Subjective ROS Limited/Unobtainable: No Constitutional: Reports: malaise Allergies: Coded Allergies: HONEY (Verified Allergy, Unknown, 07/12/17) PENICILLINS (Verified Allergy, Unknown, 07/12/17) Objective Last 24 Hour Vital Signs Date Time Temp Pulse Resp B/P (MAP) Pulse Ox O2 Delivery O2 Flow Rate FiO2 07/15/17 08:00 98.4 81 20 149/93 100 Room Air 100 07/15/17 04:00 98.4 66 20 98/66 98 Room Air 66 07/15/17 04:00 90 07/15/17 00:00 87 07/15/17 00:00 98.4 92 22 136/83 93 Room Air 92 07/14/17 20:02 99.3 94 22 136/84 97 Room Air 94 07/14/17 19:34 95 Nasal Cannula 2.0 28 07/14/17 19:34 Nasal Cannula 2.0 28 07/14/17 17:00 98.5 92 15 144/82 100 Room Air 07/14/17 16:30 91 07/14/17 16:00 92 07/14/17 16:00 98.5 92 20 119/74 100 Room Air 07/14/17 15:00 91 20 124/79 100 Room Air 07/14/17 14:00 83 16 117/71 100 Room Air 07/14/17 13:00 94 15 123/79 100 Room Air Laboratory Tests 07/15/17 08:00: White Blood Count 5.3, Red Blood Count 3.28L, Hemoglobin 11.9L, Hematocrit 35.1L , Mean Corpuscular Volume 107H, Mean Corpuscular Hemoglobin 36.2H, Mean Corpuscular Hemoglobin Concent 33.8, Red Cell Distribution Width 11.3L, Platelet Count 214, Mean Platelet Volume 7.9, Neutrophils (%) (Auto) 69.9, Lymphocytes (%) (Auto) 16.8L, Monocytes (%) (Auto) 9.5, Eosinophils (%) (Auto) 2.0, Basophils (%) (Auto) 1.9, Sodium Level 137, Potassium Level 3.7, Chloride Level 105, Carbon Dioxide Level 23, Anion Gap 9, Blood Urea Nitrogen 12, Creatinine 0.9, Estimat Glomerular Filtration Rate > 60, Glucose Level 101, Calcium Level 8.6, Phosphorus Level 2.2L, Magnesium Level 1.6L, Total Bilirubin 5.4H, Direct Bilirubin 4.7H, Gamma Glutamyl Transpeptidase 1158H, Aspartate Amino Transf (AST/SGOT) 83H, Alanine Aminotransferase (ALT/SGPT) 74, Alkaline Phosphatase 233H, C-Reactive Protein, Quantitative 1.3H, Pro-B-Type Natriuretic Peptide 290H, Total Protein 6.6, Albumin 2.6L, Globulin 4.0, Albumin/Globulin Ratio 0.6L, Random Vancomycin Level 3.8 Height (Feet): 6 Height (Inches): 0.00 Weight (Pounds): 190 General Appearance: no apparent distress, other - tremulous Cardiovascular: tachycardia Respiratory/Chest: lungs clear Abdomen: soft Objective no signs of CHF ANDREA GOODEN Jul 15, 2017 12:17
[2017-07-15] MEDS ORDERED: Magnesium Oxide 400mg tab ORAL SCH (13:00)
[2017-07-15] MEDS ORDERED: Phospha 250 Neutral tab ORAL SCH (13:00)
--- NOTE | 2017-07-15 13:10 | GI Progress Note ---
Assessment/Plan Problems: (1) Sepsis ICD Codes: A41.9 - Sepsis, unspecified organism SNOMED: 26641512 (2) Epileptic seizure, generalized ICD Codes: G40.309 - Generalized idiopathic epilepsy and epileptic syndromes, not intractable, without status epilepticus SNOMED: 02634888 (3) Seizure disorder ICD Codes: G40.909 - Epilepsy, unspecified, not intractable, without status epilepticus SNOMED: 625777158 (4) Absence seizure ICD Codes: G40.A09 - Absence epileptic syndrome, not intractable, without status epilepticus SNOMED: 16607927 Status: progressing Status Narrative Discussed with Dr. Haq. Assessment/Plan CT AP reviewed >> unremarkable History of hepatitis C, history of intravenous drug abuse elevated lipase >> now normal utox positive >> benzodiazepine fu hep panel >> Hep C positive drastic LFT elevation >> spoke to ID, patient was on Aztreonam >> abdominal U/S deferred ST eval noted >> soft renal diet thiamine ppi fu labs outpatient Hep C treatment Subjective Subjective tolerating food Objective Last 24 Hour Vital Signs Date Time Temp Pulse Resp B/P (MAP) Pulse Ox O2 Delivery O2 Flow Rate FiO2 07/15/17 08:00 98.4 81 20 149/93 100 Room Air 100 07/15/17 07:05 Nasal Cannula 2.0 07/15/17 07:05 100 Nasal Cannula 2.0 07/15/17 04:00 98.4 66 20 98/66 98 Room Air 66 07/15/17 04:00 90 07/15/17 00:00 87 07/15/17 00:00 98.4 92 22 136/83 93 Room Air 92 07/14/17 20:02 99.3 94 22 136/84 97 Room Air 94 07/14/17 19:34 95 Nasal Cannula 2.0 28 07/14/17 19:34 Nasal Cannula 2.0 28 07/14/17 17:00 98.5 92 15 144/82 100 Room Air 07/14/17 16:30 91 07/14/17 16:00 92 07/14/17 16:00 98.5 92 20 119/74 100 Room Air 07/14/17 15:00 91 20 124/79 100 Room Air 07/14/17 14:00 83 16 117/71 100 Room Air Laboratory Tests Test 07/15/17 08:00 White Blood Count 5.3 K/UL (4.8-10.8) Red Blood Count 3.28 M/UL (4.70-6.10) L Hemoglobin 11.9 G/DL (14.2-18.0) L Hematocrit 35.1 % (42.0-52.0) L Mean Corpuscular Volume 107 FL (80-99) H Mean Corpuscular Hemoglobin 36.2 PG (27.0-31.0) H Mean Corpuscular Hemoglobin Concent 33.8 G/DL (32.0-36.0) Red Cell Distribution Width 11.3 % (11.6-14.8) L Platelet Count 214 K/UL (150-450) Mean Platelet Volume 7.9 FL (6.5-10.1) Neutrophils (%) (Auto) 69.9 % (45.0-75.0) Lymphocytes (%) (Auto) 16.8 % (20.0-45.0) L Monocytes (%) (Auto) 9.5 % (1.0-10.0) Eosinophils (%) (Auto) 2.0 % (0.0-3.0) Basophils (%) (Auto) 1.9 % (0.0-2.0) Sodium Level 137 MMOL/L (136-145) Potassium Level 3.7 MMOL/L (3.5-5.1) Chloride Level 105 MMOL/L (98-107) Carbon Dioxide Level 23 MMOL/L (21-32) Anion Gap 9 mmol/L (5-15) Blood Urea Nitrogen 12 mg/dL (7-18) Creatinine 0.9 MG/DL (0.55-1.30) Estimat Glomerular Filtration Rate > 60 mL/min (>60) Glucose Level 101 MG/DL (74-106) Calcium Level 8.6 MG/DL (8.5-10.1) Phosphorus Level 2.2 MG/DL (2.5-4.9) L Magnesium Level 1.6 MG/DL (1.8-2.4) L Total Bilirubin 5.4 MG/DL (0.2-1.0) H Direct Bilirubin 4.7 MG/DL (0.0-0.3) H Gamma Glutamyl Transpeptidase 1158 U/L (5-85) H Aspartate Amino Transf (AST/SGOT) 83 U/L (15-37) H Alanine Aminotransferase (ALT/SGPT) 74 U/L (12-78) Alkaline Phosphatase 233 U/L (46-116) H C-Reactive Protein, Quantitative 1.3 mg/dL (0.00-0.90) H Pro-B-Type Natriuretic Peptide 290 pg/mL (0-125) H Total Protein 6.6 G/DL (6.4-8.2) Albumin 2.6 G/DL (3.4-5.0) L Globulin 4.0 g/dL Albumin/Globulin Ratio 0.6 (1.0-2.7) L Random Vancomycin Level 3.8 ug/mL Height (Feet): 6 Height (Inches): 0.00 Weight (Pounds): 190 General Appearance: WD/WN, no apparent distress, alert Cardiovascular: normal rate Respiratory/Chest: no respiratory distress, other - NC Abdominal Exam: normal bowel sounds, non tender, soft Meghana Funes N.P. Jul 15, 2017 13:10
--- NOTE | 2017-07-15 13:44 | Pulmonology Progress Note ---
Assessment/Plan Assessment/Plan Pulmonary edema no clear pneumonia possible sepsis sob seizure disorder PLAN continue same oxygen as needed keep negative continue same impression, plan, and exam edited and reviewed in detail care discussed with RN Subjective Allergies: Coded Allergies: HONEY (Verified Allergy, Unknown, 07/12/17) PENICILLINS (Verified Allergy, Unknown, 07/12/17) Subjective coverage for Tirmizi comfortable no sob no distress Objective Last 24 Hour Vital Signs Date Time Temp Pulse Resp B/P (MAP) Pulse Ox O2 Delivery O2 Flow Rate FiO2 07/15/17 12:00 98.3 78 20 153/86 95 Room Air 07/15/17 08:00 98.4 81 20 149/93 100 Room Air 100 07/15/17 07:05 Nasal Cannula 2.0 07/15/17 07:05 100 Nasal Cannula 2.0 07/15/17 04:00 98.4 66 20 98/66 98 Room Air 66 07/15/17 04:00 90 07/15/17 00:00 87 07/15/17 00:00 98.4 92 22 136/83 93 Room Air 92 07/14/17 20:02 99.3 94 22 136/84 97 Room Air 94 07/14/17 19:34 95 Nasal Cannula 2.0 28 07/14/17 19:34 Nasal Cannula 2.0 28 07/14/17 17:00 98.5 92 15 144/82 100 Room Air 07/14/17 16:30 91 07/14/17 16:00 92 07/14/17 16:00 98.5 92 20 119/74 100 Room Air 07/14/17 15:00 91 20 124/79 100 Room Air 07/14/17 14:00 83 16 117/71 100 Room Air Objective WDWN NAD clear breath sounds bilaterally without rhonchi or wheeze [id number] without MRG NABS nontender no HSM no CCE nonfocal Microbiology Date/Time Source Procedure Growth Status 07/13/17 09:30 Blood Blood Culture - Preliminary NO GROWTH AFTER 24 HOURS Resulted 07/13/17 09:15 Blood Blood Culture - Preliminary NO GROWTH AFTER 24 HOURS Resulted 07/12/17 19:30 Nasopharynx Influenza Types A,B Antigen (JOE) - Final Complete Laboratory Tests 07/15/17 08:00: White Blood Count 5.3, Red Blood Count 3.28L, Hemoglobin 11.9L, Hematocrit 35.1L , Mean Corpuscular Volume 107H, Mean Corpuscular Hemoglobin 36.2H, Mean Corpuscular Hemoglobin Concent 33.8, Red Cell Distribution Width 11.3L, Platelet Count 214, Mean Platelet Volume 7.9, Neutrophils (%) (Auto) 69.9, Lymphocytes (%) (Auto) 16.8L, Monocytes (%) (Auto) 9.5, Eosinophils (%) (Auto) 2.0, Basophils (%) (Auto) 1.9, Sodium Level 137, Potassium Level 3.7, Chloride Level 105, Carbon Dioxide Level 23, Anion Gap 9, Blood Urea Nitrogen 12, Creatinine 0.9, Estimat Glomerular Filtration Rate > 60, Glucose Level 101, Calcium Level 8.6, Phosphorus Level 2.2L, Magnesium Level 1.6L, Total Bilirubin 5.4H, Direct Bilirubin 4.7H, Gamma Glutamyl Transpeptidase 1158H, Aspartate Amino Transf (AST/SGOT) 83H, Alanine Aminotransferase (ALT/SGPT) 74, Alkaline Phosphatase 233H, C-Reactive Protein, Quantitative 1.3H, Pro-B-Type Natriuretic Peptide 290H, Total Protein 6.6, Albumin 2.6L, Globulin 4.0, Albumin/Globulin Ratio 0.6L, Random Vancomycin Level 3.8 Current Medications Medications (Trade) Dose Ordered Sig/Candice Route PRN Reason Start Time Stop Time Status Last Admin Dose Admin Acetaminophen (Tylenol) 650 mg Q4H PRN ORAL Mild Pain/Temp > 100.5 07/14/17 17:00 08/11/17 16:59 Dextrose (Dextrose 50%) STAT PRN IV Hypoglycemia 07/14/17 17:00 08/11/17 16:59 Docusate Sodium (Colace) 100 mg TWICE A DAY ORAL 07/14/17 18:00 08/13/17 08:59 07/15/17 11:14 Haloperidol Lactate (Haldol) 2 mg Q6H PRN IM For Agitation 07/14/17 18:00 08/13/17 17:59 Heparin Sodium (Porcine) (Heparin 5000 units/ml) 5,000 units EVERY 12 HOURS SUBQ 07/14/17 21:00 08/11/17 20:59 07/15/17 11:15 Levetiracetam (Keppra) 250 mg Q12HR ORAL 07/14/17 21:00 08/13/17 20:59 07/15/17 11:14 Lorazepam (Ativan 2mg/ml 1ml) 1 mg Q4H PRN IV For Anxiety 07/14/17 16:30 07/20/17 12:29 Lorazepam (Ativan 2mg/ml 1ml) 1 mg Q4H PRN IV For Seizures 07/14/17 16:30 07/20/17 12:29 Magnesium Hydroxide (Mom) 30 ml Q4H PRN ORAL Constipation First Line Agent 07/14/17 17:00 08/13/17 16:59 Magnesium Oxide (Mag-Ox 400mg) 400 mg THREE TIMES A DAY ORAL 07/15/17 13:00 08/14/17 12:59 07/15/17 13:23 Metronidazole 100 ml @ 100 mls/hr Q8HR@0000,0800,1600 IVPB 07/14/17 17:00 07/21/17 16:59 07/15/17 07:03 Pantoprazole (Protonix) 40 mg DAILY ORAL 07/15/17 09:00 08/13/17 08:59 07/15/17 11:13 Phosphorus (Phospha 250 Neutral) 250 mg THREE TIMES A DAY ORAL 07/15/17 13:00 08/14/17 12:59 07/15/17 13:23 Sennosides (Senokot) 8.6 mg DAILY ORAL 07/15/17 09:00 08/13/17 08:59 07/15/17 11:14 Sodium Phosphate 30 mm/Sodium Chloride 285 ml @ 47.5 mls/hr ONCE ONCE IVPB 07/15/17 11:15 07/15/17 17:14 07/15/17 13:18 Thiamine HCl (Vitamin B1) 100 mg DAILY ORAL 07/15/17 09:00 08/13/17 08:59 07/15/17 11:14 Vancomycin HCl (Vanco rx to dose) 1 ea DAILY PRN MISC Per rx protocol 07/15/17 09:00 08/11/17 16:44 Vancomycin/Sodium Chloride 250 ml @ 166.667 mls/hr Q12HR@0200,1400 IVPB 07/15/17 14:00 07/20/17 13:59 JET WANG Jul 15, 2017 13:44
[2017-07-15] MEDS ORDERED: Vancomycin 750mg/NS 250ml IVPB SCH (14:00)
[2017-07-15 16:26] VITALS: BP 140/90
--- NOTE | 2017-07-15 16:33 | Infectious Diseases Prog Note ---
Assessment/Plan Problems: (1) UTI (urinary tract infection) Assessment & Plan: UCx noted. Finish a 3-day course of vancomycin IV. Could have been contaminant. Patient otherwise asymptomatic. No further antibiotics at SNF. (2) Alcohol abuse (3) Seizure disorder Assessment & Plan: Poorly controlled. (4) Non-compliance (5) Penicillin allergy Subjective Allergies: Coded Allergies: HONEY (Verified Allergy, Unknown, 07/12/17) PENICILLINS (Verified Allergy, Unknown, 07/12/17) Objective Vital Signs Last 24 Hour Vital Signs Date Time Temp Pulse Resp B/P (MAP) Pulse Ox O2 Delivery O2 Flow Rate FiO2 07/15/17 16:26 98.8 85 19 140/90 98 Room Air 07/15/17 12:00 98.3 78 20 153/86 95 Room Air 07/15/17 08:00 98.4 81 20 149/93 100 Room Air 100 07/15/17 07:05 Nasal Cannula 2.0 07/15/17 07:05 100 Nasal Cannula 2.0 07/15/17 04:00 98.4 66 20 98/66 98 Room Air 66 07/15/17 04:00 90 07/15/17 00:00 87 07/15/17 00:00 98.4 92 22 136/83 93 Room Air 92 07/14/17 20:02 99.3 94 22 136/84 97 Room Air 94 07/14/17 19:34 95 Nasal Cannula 2.0 28 07/14/17 19:34 Nasal Cannula 2.0 28 07/14/17 17:00 98.5 92 15 144/82 100 Room Air Height (Feet): 6 Height (Inches): 0.00 Weight (Pounds): 190 Microbiology Date/Time Source Procedure Growth Status 07/13/17 09:30 Blood Blood Culture - Preliminary NO GROWTH AFTER 24 HOURS Resulted 07/13/17 09:15 Blood Blood Culture - Preliminary NO GROWTH AFTER 24 HOURS Resulted 07/12/17 19:30 Nasopharynx Influenza Types A,B Antigen (JOE) - Final Complete Laboratory Tests Test 07/15/17 08:00 White Blood Count 5.3 K/UL (4.8-10.8) Red Blood Count 3.28 M/UL (4.70-6.10) L Hemoglobin 11.9 G/DL (14.2-18.0) L Hematocrit 35.1 % (42.0-52.0) L Mean Corpuscular Volume 107 FL (80-99) H Mean Corpuscular Hemoglobin 36.2 PG (27.0-31.0) H Mean Corpuscular Hemoglobin Concent 33.8 G/DL (32.0-36.0) Red Cell Distribution Width 11.3 % (11.6-14.8) L Platelet Count 214 K/UL (150-450) Mean Platelet Volume 7.9 FL (6.5-10.1) Neutrophils (%) (Auto) 69.9 % (45.0-75.0) Lymphocytes (%) (Auto) 16.8 % (20.0-45.0) L Monocytes (%) (Auto) 9.5 % (1.0-10.0) Eosinophils (%) (Auto) 2.0 % (0.0-3.0) Basophils (%) (Auto) 1.9 % (0.0-2.0) Sodium Level 137 MMOL/L (136-145) Potassium Level 3.7 MMOL/L (3.5-5.1) Chloride Level 105 MMOL/L (98-107) Carbon Dioxide Level 23 MMOL/L (21-32) Anion Gap 9 mmol/L (5-15) Blood Urea Nitrogen 12 mg/dL (7-18) Creatinine 0.9 MG/DL (0.55-1.30) Estimat Glomerular Filtration Rate > 60 mL/min (>60) Glucose Level 101 MG/DL (74-106) Calcium Level 8.6 MG/DL (8.5-10.1) Phosphorus Level 2.2 MG/DL (2.5-4.9) L Magnesium Level 1.6 MG/DL (1.8-2.4) L Total Bilirubin 5.4 MG/DL (0.2-1.0) H Direct Bilirubin 4.7 MG/DL (0.0-0.3) H Gamma Glutamyl Transpeptidase 1158 U/L (5-85) H Aspartate Amino Transf (AST/SGOT) 83 U/L (15-37) H Alanine Aminotransferase (ALT/SGPT) 74 U/L (12-78) Alkaline Phosphatase 233 U/L (46-116) H C-Reactive Protein, Quantitative 1.3 mg/dL (0.00-0.90) H Pro-B-Type Natriuretic Peptide 290 pg/mL (0-125) H Total Protein 6.6 G/DL (6.4-8.2) Albumin 2.6 G/DL (3.4-5.0) L Globulin 4.0 g/dL Albumin/Globulin Ratio 0.6 (1.0-2.7) L Random Vancomycin Level 3.8 ug/mL Current Medications Medications (Trade) Dose Ordered Sig/Candice Route PRN Reason Start Time Stop Time Status Last Admin Dose Admin Acetaminophen (Tylenol) 650 mg Q4H PRN ORAL Mild Pain/Temp > 100.5 07/14/17 17:00 08/11/17 16:59 Dextrose (Dextrose 50%) STAT PRN IV Hypoglycemia 07/14/17 17:00 08/11/17 16:59 Docusate Sodium (Colace) 100 mg TWICE A DAY ORAL 07/14/17 18:00 08/13/17 08:59 07/15/17 11:14 Haloperidol Lactate (Haldol) 2 mg Q6H PRN IM For Agitation 07/14/17 18:00 08/13/17 17:59 Heparin Sodium (Porcine) (Heparin 5000 units/ml) 5,000 units EVERY 12 HOURS SUBQ 07/14/17 21:00 08/11/17 20:59 07/15/17 11:15 Levetiracetam (Keppra) 250 mg Q12HR ORAL 07/14/17 21:00 08/13/17 20:59 07/15/17 11:14 Lorazepam (Ativan 2mg/ml 1ml) 1 mg Q4H PRN IV For Anxiety 07/14/17 16:30 07/20/17 12:29 Lorazepam (Ativan 2mg/ml 1ml) 1 mg Q4H PRN IV For Seizures 07/14/17 16:30 07/20/17 12:29 Magnesium Hydroxide (Mom) 30 ml Q4H PRN ORAL Constipation First Line Agent 07/14/17 17:00 08/13/17 16:59 Magnesium Oxide (Mag-Ox 400mg) 400 mg THREE TIMES A DAY ORAL 07/15/17 13:00 08/14/17 12:59 07/15/17 13:23 Metronidazole 100 ml @ 100 mls/hr Q8HR@0000,0800,1600 IVPB 07/14/17 17:00 07/21/17 16:59 07/15/17 07:03 Pantoprazole (Protonix) 40 mg DAILY ORAL 07/15/17 09:00 08/13/17 08:59 07/15/17 11:13 Phosphorus (Phospha 250 Neutral) 250 mg THREE TIMES A DAY ORAL 07/15/17 13:00 08/14/17 12:59 07/15/17 13:23 Sennosides (Senokot) 8.6 mg DAILY ORAL 07/15/17 09:00 08/13/17 08:59 07/15/17 11:14 Sodium Phosphate 30 mm/Sodium Chloride 285 ml @ 47.5 mls/hr ONCE ONCE IVPB 07/15/17 11:15 07/15/17 17:14 07/15/17 13:18 Thiamine HCl (Vitamin B1) 100 mg DAILY ORAL 07/15/17 09:00 08/13/17 08:59 07/15/17 11:14 Vancomycin HCl (Vanco rx to dose) 1 ea DAILY PRN MISC Per rx protocol 07/15/17 09:00 08/11/17 16:44 Vancomycin/Sodium Chloride 250 ml @ 166.667 mls/hr Q12HR@0200,1400 IVPB 07/15/17 14:00 07/20/17 13:59 BRIAN SCOTT Jul 15, 2017 16:33
--- NOTE | 2017-07-15 21:30 | General Progress Note ---
Assessment/Plan Assessment/Plan ASSESSMENT AND RECOMMENDATIONS: 1. Macrocytosis, likely due to alcohol abuse. Continue to closely monitor, should improve off alcohol. 2. Anemia, decreased hemoglobin, currently at 12, likely is related to history of hemodilution. 3. Urine toxicology positive for benzodiazepines, positive for substance abuse. 4. Hepatitis C, to be managed by GI service. Subjective Constitutional: Reports: no symptoms HEENT: Reports: no symptoms Cardiovascular: Reports: no symptoms Respiratory: Reports: no symptoms Gastrointestinal/Abdominal: Reports: no symptoms Genitourinary: Reports: no symptoms Neurologic/Psychiatric: Reports: no symptoms Endocrine: Reports: no symptoms Hematologic/Lymphatic: Reports: no symptoms Allergies: Coded Allergies: HONEY (Verified Allergy, Unknown, 07/12/17) PENICILLINS (Verified Allergy, Unknown, 07/12/17) Subjective VSS, afebrile Objective Last 24 Hour Vital Signs Date Time Temp Pulse Resp B/P (MAP) Pulse Ox O2 Delivery O2 Flow Rate FiO2 07/15/17 16:26 98.8 85 19 140/90 98 Room Air 07/15/17 16:00 85 07/15/17 12:00 80 07/15/17 12:00 98.3 78 20 153/86 95 Room Air 07/15/17 08:00 98.4 81 20 149/93 100 Room Air 100 07/15/17 08:00 78 07/15/17 07:05 Nasal Cannula 2.0 07/15/17 07:05 100 Nasal Cannula 2.0 07/15/17 04:00 98.4 66 20 98/66 98 Room Air 66 07/15/17 04:00 90 07/15/17 00:00 87 07/15/17 00:00 98.4 92 22 136/83 93 Room Air 92 Intake and Output 07/15/17 07/16/17 19:00 07:00 Intake Total 240 ml Output Total 800 ml Balance -560 ml Intake Oral 240 ml Output Urine Total 800 ml # Voids 1 # Bowel Movements 2 Laboratory Tests 07/15/17 08:00: White Blood Count 5.3, Red Blood Count 3.28L, Hemoglobin 11.9L, Hematocrit 35.1L , Mean Corpuscular Volume 107H, Mean Corpuscular Hemoglobin 36.2H, Mean Corpuscular Hemoglobin Concent 33.8, Red Cell Distribution Width 11.3L, Platelet Count 214, Mean Platelet Volume 7.9, Neutrophils (%) (Auto) 69.9, Lymphocytes (%) (Auto) 16.8L, Monocytes (%) (Auto) 9.5, Eosinophils (%) (Auto) 2.0, Basophils (%) (Auto) 1.9, Sodium Level 137, Potassium Level 3.7, Chloride Level 105, Carbon Dioxide Level 23, Anion Gap 9, Blood Urea Nitrogen 12, Creatinine 0.9, Estimat Glomerular Filtration Rate > 60, Glucose Level 101, Calcium Level 8.6, Phosphorus Level 2.2L, Magnesium Level 1.6L, Total Bilirubin 5.4H, Direct Bilirubin 4.7H, Gamma Glutamyl Transpeptidase 1158H, Aspartate Amino Transf (AST/SGOT) 83H, Alanine Aminotransferase (ALT/SGPT) 74, Alkaline Phosphatase 233H, C-Reactive Protein, Quantitative 1.3H, Pro-B-Type Natriuretic Peptide 290H, Total Protein 6.6, Albumin 2.6L, Globulin 4.0, Albumin/Globulin Ratio 0.6L, Random Vancomycin Level 3.8 Height (Feet): 6 Height (Inches): 0.00 Weight (Pounds): 190 General Appearance: no apparent distress EENT: normal ENT inspection Neck: non-tender Cardiovascular: normal rate Skin: warm/dry Kwame Berman Jul 15, 2017 21:30
--- NOTE | 2017-07-15 23:32 | Diagnostic Imaging Report ---
APPROVED REPORT CPT Code: 34262 Present Symptoms Shortness of breath BILATERAL: Imaging reveals a patent deep venous system bilaterally. There is no evidence of thrombus within the femoral, popliteal or tibial segments. The greater saphenous veins are also within normal limits. Doppler indicates normal spontaneous flow within these segments.
--- NOTE | 2017-07-16 17:14 | Discharge Summary ---
Discharge Summary Hospital Course Date of Admission Jul 12, 2017 at 11:40 Date of Discharge Jul 15, 2017 at 17:07 Admitting Diagnosis Intractable Seizure HPI Gerber Quiroz is a 67 year old male who was admitted on Jul 12, 2017 at 11:40 for Intractable Seizure Hospital Course [id number] Discharge Discharge Disposition Patient was discharged to SNF/Subacute Facility(03) Discharge Diagnoses: Cele Arroyo NP Jul 16, 2017 17:14
--- NOTE | 2017-07-16 18:30 | Electroencephalogram ---
DATE OF PROCEDURE: 07/14/2017 ELECTROENCEPHALOGRAPHY REPORT REQUESTING PHYSICIAN: John Carballo M.D. READING PHYSICIAN: Hector Solares M.D. PROCEDURE PERFORMED: Electroencephalogram. HISTORY: This is a 67-year-old man with history of seizure disorder, currently presented with abnormal gait and confusion. EEG was requested to assess seizure activities. MEDICATIONS: The patient's current treatment included Keppra and Haldol for severe agitation. TECHNIQUE: EEG was done using 18 electrodes placed scalp to scalp, scalp to ear montages according to 10/20 International system. RESULTS: In the most wakeful portions of recording, background consisted of a mixture of 8 to 9 cycles per second alpha activities of 5 to 15 millivolt amplitude bilaterally. As recording progressed, there was of slowing in the theta range corresponding to sleep stages. There was no asymmetry from side to side. There was no spike or wave activity or any paroxysmal events. Recording was abruptly stopped at the patient's request. IMPRESSION: Normal awake stage 1 sleep electroencephalogram. COMMENT: Absence of paroxysmal event on a single recording does not rule out seizure disorder. Hector Solares M.D. DR: Marino JOB#: [id number] CC:
--- NOTE | 2017-07-17 00:31 | Discharge Summary 2 SIG ---
DATE OF ADMISSION: 07/12/2017 DATE OF DISCHARGE: 07/15/2017 CONSULTANTS: 1. Kwame Berman M.D. 2. Isidoro Reyes M.D. 3. Medardo Walker M.D. 4. Glenn Haq M.D. 5. Mamadou Menchaca M.D. 6. Hector Solares M.D. BRIEF HOSPITAL COURSE: The patient is a 67-year-old male with past medical history of seizure disorder, who was brought in by paramedics to [facility] emergency room after he had a breakthrough seizure activity witnessed by the nursing staff. On evaluation at ED, the patient was postictal. He was given benzodiazepine by paramedics. CAT scan of the head did not show any acute disease. Chest x-ray showed mild bilateral pulmonary vascular congestion. He was hypotensive and tachycardic. Urinalysis with 5 to 10 WBC, 2 to 4 RBC, positive nitrite, and 2+ leukocyte esterase. He was started empirically on vancomycin, aztreonam, and Flagyl. He was given pulmonary support. He was admitted to telemetry and was placed on seizure precautions. He was continued on Keppra 1000 mg b.i.d. with p.r.n. Haldol and Ativan. Urine culture with growth of Staph hominis. Influenza A and B were negative. Keppra was eventually tapered down to 250 mg b.i.d. He was given physical and occupational therapy. Blood work showed anemia likely hemodilution. He had macrocytosis due to alcohol abuse. He had a drastic LFT elevation. Ultrasound findings showed possible early cirrhotic changes. Hepatitis screen was positive for hepatitis C. He was given thiamine and proton pump inhibitors. Venous duplex of lower extremity was negative for DVT. He was given three-day course of IV vancomycin. The patient was eventually discharged to SNF. FINAL DIAGNOSES: 1. Urinary tract infection. 2. Seizure disorder with acute exacerbation with acute breakthrough seizure. 3. Abnormality of gait. 4. Alcohol abuse. 5. Macrocytosis due to alcohol abuse. 6. Hepatitis C. 7. Possible pneumonia. 8. Sepsis with hypotension due to urinary tract infection and possible pneumonia. 9. Acute renal failure due to hypotension. DISCHARGE DISPOSITION: The patient was discharged to [facility]. John Carballo M.D. I have been assigned to dictate discharge summary on this account and I was not involved in the patient's management. Cele Arroyo N.P. DR: PAMELA JOB#: [id number] CC:
--- NOTE | 2017-07-21 08:25 | Cardiology Report ---
APPROVED REPORT EKG Measurement Heart [id number] MD [id number] Sinus tachycardia Possible Biatrial enlargement Nonspecific ST abnormality Abnormal ECG
== END 2017-07-15 17:07 | DRG 720 ==
LOC: EDBD 10:27 → EMR 10:35 → 2E 11:40 → EDBEDREQ 12:47 → ICU 21:56 → 2E 07-14 16:04
DX: A41.9 Sepsis, unspecified organism (principal); N17.9 Acute kidney failure, unspecified; J18.9 Pneumonia, unspecified organism; G40.409 Other generalized epilepsy and epileptic syndromes, not intractable, without status epilepticus; I10 Essential (primary) hypertension; N39.0 Urinary tract infection, site not specified; R26.9 Unspecified abnormalities of gait and mobility; D75.89 Other specified diseases of blood and blood-forming organs; B19.20 Unspecified viral hepatitis C without hepatic coma; K21.9 Gastro-esophageal reflux disease without esophagitis; Z88.0 Allergy status to penicillin; F10.21 Alcohol dependence, in remission; Z91.19 Patient's noncompliance with other medical treatment and regimen
CPT/HCPCS: 36415; 51701; 70450; 71010; 74177; 74230; 80053; 80061; 80202; 80299; 80300; 81003; 82150; 82248; 82550; 82553; 82607; 82746; 82977; 83690; 83735; 83880; 84100; 84300; 84484; 84550; 85007; 85025; 85610; 86140; 86705; 86709; 86710; 86803; 87040; 87086; 87181; 87340; 93005; 93306; 93970; 94760; 95819; 99285; C9399